=== PATIENT | female | born 1995 | race Two or more races ===

== ENCOUNTER 2021-04-01 10:45 | Outpatient (CLI) | payer OTHER, SELFPAY ==
[2021-04-01 10:49] LABS: Amphetamine Urine VISTA NEGATIVE (<1000 ng/mL); Barbiturate Urine VISTA NEGATIVE (< 200 ng/mL); Benzodiazepine Urine VISTA NEGATIVE (< 200 ng/mL); Cocaine Urine VISTA NEGATIVE (< 300 ng/mL); Ecstacy Urine VISTA NEGATIVE (< 500 ng/mL); Methadone Urine VISTA NEGATIVE (< 300 ng/mL); PCP Urine VISTA NEGATIVE (< 25 ng/mL); THC Urine VISTA NEGATIVE (< 50 ng/mL); Vista UDS pH Range 6
[2021-04-02 21:06] LABS: Chlamydia By Nucleic Acid AMP Negative (Negative)
[2021-04-03 15:33] LABS: Gonococcus By Nucleic Acid AMP Negative (Negative)
== END 2021-04-01 23:59 | disposition short-term general hospital (02) ==
LOC: LABSPEC 10:47
PROVIDERS: PCP Nurse Practitioner Primary Care; Visit Provider Obstetrics & Gynecology
DX: Z34.90 Encounter for supervision of normal pregnancy, unspecified, unspecified trimester (principal)
CPT/HCPCS: 80307; 87086; 87491; 87591

== ENCOUNTER 2021-04-09 00:12 | Outpatient (CLI) | payer OTHER, SELFPAY ==
[2021-04-09 07:22] LABS: Absolute Lymphocyte Count 2.51 X10^3/uL (0.83-4.51); Absolute Neutrophil Count 9.3 X10^3/uL (2.0-7.7); Basophil# 0.03 X10^3/uL; Basophil% 0.2 % (0-1); Eosinophil# 0.04 X10^3/uL; Eosinophils% 0.3 % (0-5); Hematocrit 36.9 % (37-47); Hemoglobin 12.6 g/dL (12.0-15.0); Lymphocyte # 2.51 X10^3/ul (0.83-4.51); Lymphocyte % 19.7 % (19-41); Mean Corp Hgb Conc 34.1 g/dL (32-36); Mean Corpuscular Hgb 28.7 pg (27.0-32.0); Mean Corpuscular Volume 84.1 fL (81-99); Mean Platelet Vol. 9.8 fl (6.2-12.0); Monocyte# 0.83 X10^3/uL; Monocyte% 6.5 % (0-10); NRBC Flagged by Analyzer 0 % (0-5); Neutrophil # 9.27 X10^3/uL (2.7-7.7); Neutrophil % 72.9 % (47-70); Platelet Count 317 K/mm3 (150-450); RBC Distribution Width CV 11.5 % (11.6-14.6); RBC Distribution Width SD 35.3 fl (35.1-43.9); Red Blood Count 4.39 M/mm3 (4.2-5.4); White Blood Count 12.7 K/mm3 (4.4-11.0)
[2021-04-09 09:17] LABS: HIV - WCH Non-Reactive (Nonreactive); Hepatitis B Surface Antigen Non-Reactive (Nonreactive); Hepatitis C Antibody Non-Reactive (Nonreactive); Rubella IgG Reactive (Nonreactive); Syphilis Antibodies Non-reactive
== END 2021-04-09 23:59 | disposition short-term general hospital (02) ==
PROVIDERS: PCP Nurse Practitioner Primary Care; Visit Provider Obstetrics & Gynecology
DX: Z34.90 Encounter for supervision of normal pregnancy, unspecified, unspecified trimester (principal)
CPT/HCPCS: 85025; 86703; 86762; 86780; 86803; 86850; 86900; 86901; 87340

== ENCOUNTER 2021-06-10 08:16 | Outpatient (CLI) | payer OTHER, SELFPAY ==
--- NOTE | 2021-06-10 08:18 | US_ITS ---
STUDY: SECOND AND THIRD TRIMESTER OBSTETRICAL ULTRASOUND REASON FOR EXAM: Female, 25 years old routine survey LMP: 01/28/2021 TECHNIQUE: Transabdominal TECHNICAL QUALITY: Adequate. PRIOR ULTRASOUND: None. FINDINGS: There is a single intrauterine fetus. The fetus is in a breech presentation. There is demonstrated cardiac activity with a heart rate of 143 bpm. There is a subjectively normal amniotic fluid volume. The largest amniotic fluid pocket measures 6.3 x 2.2 cm. The placenta is anterior in location and is not low lying. There are Grade 0 placental changes. The cervix measures 4.1 cm in length. The bilateral adnexal regions are normal. BIOMETRY: BPD: 4.14 cm: 18 weeks, 3 days HC: 15.08 cm: 18 weeks, 0 days AC: 13.83 cm: 19 weeks, 1 days FL: 2.92 cm: 18 weeks, 6 days age by current US: 18 weeks, 2 days. ENEIDA by current US: 11/09/2021. Estimated weight: 272 grams, +/- 41 grams, 49 %. Age by LMP: 19 weeks, 0 days. ENEIDA by LMP: 11/04/2021. ANATOMY: Gender: Indeterminant Cranium: Normal lateral ventricles. Normal choroid plexus. Normal cerebellum. Normal cisterna magna. Normal face, nose and lips. Chest: Normal 4-chamber heart. Abdomen/Pelvis: Normal diaphragm. Normal stomach. Normal abdominal wall. Normal cord insertion. Normal 3 vessel cord. Normal kidneys. Normal bladder. Spine: Spine could not be adequately visualized due to positioning and movement during the exam. Extremities: Normal bilateral upper extremities. Normal bilateral lower extremities. IMPRESSION: Single live intrauterine at 18 weeks, 2 days by current ultrasound with ENEIDA of 11/09/2021. Heart rate of 143 bpm. No suspicious sonographic findings. However, the spine could not be adequately visualized during the exam due to positioning and movement, recommend a short-term follow-up ultrasound to assure normal spine. Pending Final Proof Editing STUDY: FIRST TRIMESTER OBSTETRICAL ULTRASOUND REASON FOR EXAM: Female, 25 years old anatomy LMP: TECHNIQUE: TECHNICAL QUALITY: Adequate. PRIOR ULTRASOUND: None. FINDINGS: There is visualization of a single gestational sac in a normal intrauterine position. The mean sac diameter (MSD) measures , indicating an estimated gestational age (EGA) of weeks, days. The gestational sac shape is within normal limits. There is a visualized yolk sac. The yolk sac measures . The placenta is non-visualized. There is visualization of a live embryo. The crown-rump length (CRL) measures , indicating an estimated gestational age (EGA) of weeks, days. There is demonstrated cardiac activity with a heart rate of bpm. The estimated gestation age (EGA) by LMP is weeks, days. The estimated date of delivery (ENEIDA) by LMP is . The estimated gestation age (EGA) by US is weeks, days. The estimated date of delivery (ENEIDA) by US is . The uterus measures . There is no demonstrated uterine fibroid. The cervix is closed. The right ovary measures . There is no right ovarian cyst. There is no visualized right adnexal mass or complex lesion. The left ovary measures . There is no left ovarian cyst. There is no visualized left adnexal mass or complex lesion. There is no fluid in the cul de sac. US/OB Anatomy Scan IMPRESSION: Pending Final Proof Editing
== END 2021-06-10 23:59 | disposition home or self-care (01) ==
PROVIDERS: PCP Nurse Practitioner Primary Care; Referring Provider Obstetrics & Gynecology; Visit Provider Obstetrics & Gynecology
DX: Z34.90 Encounter for supervision of normal pregnancy, unspecified, unspecified trimester (principal)
CPT/HCPCS: 76805; 76817

== ENCOUNTER 2021-06-22 11:18 | Outpatient (CLI) | payer OTHER, SELFPAY ==
--- NOTE | 2021-06-22 11:22 | US_ITS ---
STUDY: SECOND AND THIRD TRIMESTER OBSTETRICAL ULTRASOUND - LIMITED REASON FOR EXAM: Female, 25 years old repeat views spine views LMP: 01/28/2021. PRIOR ULTRASOUND: Comparison is made with prior examination 06/11/2019. TECHNIQUE: Transabdominal TECHNICAL QUALITY: Adequate. FINDINGS: There is a single intrauterine fetus. The fetus is in a cephalic presentation. There is demonstrated cardiac activity with a heart rate of 153 bpm. There is a normal amniotic fluid volume. The largest amniotic fluid pocket measures 4.24 cm. The amniotic fluid index (JUDITH) is normal limits. The placenta is anterior in location and is not low lying. There are Grade 0 placental changes. The cervix measures 3.3 cm in length. BIOMETRY: Age by LMP: 20 weeks, 5 days. ENEIDA by LMP: 11/04/2021. Repeat views of the spine were obtained. No sonographic abnormality is seen. US/OB Limited (No Biometrics) IMPRESSION: Unremarkable appearance of the spine. Electronically Signed: Nathan Mckenzie MD at 15:42 EDT ,
== END 2021-06-22 23:59 | disposition home or self-care (01) ==
LOC: OPUS 11:21
PROVIDERS: PCP Nurse Practitioner Primary Care; Referring Provider Obstetrics & Gynecology; Visit Provider Obstetrics & Gynecology
DX: Z34.90 Encounter for supervision of normal pregnancy, unspecified, unspecified trimester (principal)
CPT/HCPCS: 76815

== ENCOUNTER → 2021-07-30 | Outpatient (CLI) | payer OTHER, SELFPAY ==
[2021-07-30 13:39] LABS: Absolute Lymphocyte Count 1.85 X10^3/uL (0.83-4.51); Absolute Neutrophil Count 9.5 X10^3/uL (2.0-7.7); Basophil# 0.03 X10^3/uL; Basophil% 0.2 % (0-1); Eosinophil# 0.05 X10^3/uL; Eosinophils% 0.4 % (0-5); Hematocrit 33.5 % (37-47); Hemoglobin 10.9 g/dL (12.0-15.0); Lymphocyte # 1.85 X10^3/ul (0.83-4.51); Lymphocyte % 14.6 % (19-41); Mean Corp Hgb Conc 32.5 g/dL (32-36); Mean Corpuscular Hgb 29.5 pg (27.0-32.0); Mean Corpuscular Volume 90.5 fL (81-99); Monocyte# 0.83 X10^3/uL; Monocyte% 6.6 % (0-10); NRBC Flagged by Analyzer 0 % (0-5); Neutrophil # 9.53 X10^3/uL (2.7-7.7); Neutrophil % 75.3 % (47-70); Platelet Count 255 K/mm3 (150-450); RBC Distribution Width CV 12.3 % (11.6-14.6); RBC Distribution Width SD 40.7 fl (35.1-43.9); White Blood Count 12.7 K/mm3 (4.4-11.0)
[2021-07-30 14:16] LABS: Glucose Challenge Gest 1H 50g 121 mg/dL (70-140)
== END | disposition home or self-care (01) ==
LOC: LAB 13:08
PROVIDERS: PCP Nurse Practitioner Primary Care; Referring Provider Obstetrics & Gynecology; Visit Provider Obstetrics & Gynecology
DX: Z34.90 Encounter for supervision of normal pregnancy, unspecified, unspecified trimester (principal)
CPT/HCPCS: 36415; 82950; 85025

== ENCOUNTER → 2021-10-07 | Outpatient (CLI) | payer OTHER, SELFPAY ==
[2021-10-07 14:20] LABS: Absolute Lymphocyte Count 1.64 X10^3/uL (0.83-4.51); Absolute Neutrophil Count 9.4 X10^3/uL (2.0-7.7); Basophil# 0.03 X10^3/uL; Basophil% 0.2 % (0-1); Eosinophil# 0.06 X10^3/uL; Eosinophils% 0.5 % (0-5); Hematocrit 36.7 % (37-47); Lymphocyte # 1.64 X10^3/ul (0.83-4.51); Lymphocyte % 13.3 % (19-41); Mean Corp Hgb Conc 32.7 g/dL (32-36); Mean Corpuscular Hgb 29.2 pg (27.0-32.0); Mean Corpuscular Volume 89.3 fL (81-99); Mean Platelet Vol. 9.4 fl (6.2-12.0); Monocyte# 0.98 X10^3/uL; Monocyte% 7.9 % (0-10); NRBC Flagged by Analyzer 0 % (0-5); Neutrophil # 9.38 X10^3/uL (2.7-7.7); Neutrophil % 75.8 % (47-70); Platelet Count 250 K/mm3 (150-450); RBC Distribution Width CV 12.4 % (11.6-14.6); RBC Distribution Width SD 40.3 fl (35.1-43.9); Red Blood Count 4.11 M/mm3 (4.2-5.4); White Blood Count 12.4 K/mm3 (4.4-11.0)
== END | disposition home or self-care (01) ==
LOC: LAB 13:00
PROVIDERS: PCP Nurse Practitioner Primary Care; Visit Provider Obstetrics & Gynecology
DX: D64.9 Anemia, unspecified (principal)
CPT/HCPCS: 85025

== ENCOUNTER 2021-10-11 13:40 | Outpatient (CLI) | payer OTHER, SELFPAY ==
[2021-10-11 13:47] VITALS: BP 110/67; PULSE 103
[2021-10-11 13:48] VITALS: PULSE 109; O2SAT 98; BMI 25.0
[2021-10-11 13:51] VITALS: TEMP 36.8; O2SAT 98
--- NOTE | 2021-10-11 17:59 | OB.TRI.HP_ITS ---
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 She denies loss of fluid, bright red bleeding, or dec movement. Maternal Data Information ENEIDA Calculator Estimated Delivery Date Method Current WG Current Estimate 11/04/21 LMP (Certain) 36w 5d PFSH [facility] Medical History Adenoma of breast Adopted Anxiety Mild anemia Home Medications multivitamin no.47-iron fum 27 mg-folate no.1 1 mg-dha 300 mg capsule (PNV-DHA) 1 cap PO DAILY 03/17/21 [History Last Taken 10/10/21 21:00] ferrous sulfate 325 mg (65 mg iron) tablet 325 mg PO DAILY supplement 08/11/21 [History Last Taken 10/11/21 07:00] docusate sodium 100 mg capsule (Colace) 100 mg PO DAILY PRN stool softner 09/08/21 [History Last Taken 10/11/21 07:00] Allergy/AdvReac Type Severity Reaction Status Date / Time No Known Allergies Allergy Verified 09/22/21 08:52 Social History adopted: Yes household members: spouse housing: house current occupational status: employed 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 pets and animals: No Smoking Status: Never smoker second hand exposure: No alcohol intake: never substance use type: does not use caffeine: Yes seatbelt use: always do you feel safe at home: Yes additional social history: - Syd History 2 Elective abortions Hx Para Spontaneous abortions 1 Hx # Term Pregnancies Ectopic pregnancies Hx # Pregnancies Multiple births # of living children Visit Details Expected Delivery Route/Plan Labor Preferences- CB/BF classes: encouraged labor support person: Syd labor intervention preferences: [] pain management options preferred: epidural if needed cut cord/dad catch: no : yes PP control planned: discussed possible routes of delivery and associated risks: [] special requests: [] Plans Covid status: counseled regarding risk of covid in vs vaccination and declined vaccination Flu vaccine: discussed Tdap vaccine: given Rhogam: na LARC form signed: yes movement and labor precautions reviewed. Problem list reviewed and updated with the most current plan of care details and appropriate orders placed. Relevant counseling for the gestational age provided. Continue routine care and follow up unless otherwise noted in visit notes/problem list details OB Flowsheet Initial Weight: 130 lb Date -?-?-?-?-?-?-?-?-?-?-?-?- EGA Weight BP Urine Prot -?-?-?-?-?-?-?-?-?-?-?-?- Glucose FHR FuHt Pres Dilation -?-?-?-?-?-?-?-?-?-?-?-?- Effaced St Visit Note 04/01/21 -?-?-?-?-?-?-?-?-?-?-?-?- 9w 0d 130 lb (+0 oz) 110/82 -?-?-?-?-?-?-?-?-?-?-?-?- 168 -?-?-?-?-?-?-?-?-?-?-?-?- JV-CRL is consis tent with LMP. No complaints 04/28/21 -?-?-?-?-?-?-?-?-?-?-?-?- 12w 6d 130 lb 6 oz (+6 oz) 110/80 Negative -?-?-?-?-?-?-?-?-?-?-?-?- Negative 180 -?-?-?-?-?-?-?-?-?-?-?-?- JV-nausea a alise le worse but no weight loss. anatomy scan ordered 05/29/21 -?-?-?-?-?-?-?-?-?-?-?-?- 17w 2d 139 lb 4 oz (+9 lb 4 oz) 122/70 Negative -?-?-?-?-?-?-?-?-?-?-?-?- Negative 145 -?-?-?-?-?-?-?-?-?-?-?-?- Sm- no vb crmapi ng co nausea 06/23/21 -?-?-?-?-?-?-?-?-?-?-?-?- 20w 6d 145 lb 6 oz (+15 lb 6 oz) 118/60 Trace -?-?-?-?-?-?-?-?-?-?-?-?- Negative 154 -?-?-?-?-?-?-?-?-?-?-?-?- -NO VB, LOF. N o movement yet, ant placenta. 07/20/21 -?-?-?-?-?-?-?-?-?-?-?-?- 24w 5d 151 lb 6 oz (+21 lb 6 oz) 102/80 Negative -?-?-?-?-?-?-?-?-?-?-?-?- Negative 145 -?-?-?-?-?-?-?-?-?-?-?-?- JV- no lof, vagi nal bleeding, or dec fm. gct ordered. 08/11/21 -?-?-?-?-?-?-?-?-?-?-?-?- 27w 6d 154 lb 8 oz (+24 lb 8 oz) 106/70 Trace -?-?-?-?-?-?-?-?-?-?-?-?- Negative 161 27 -?-?-?-?-?-?-?-?-?-?-?-?- -No VB, LOF. G ood FM. Normal 28 wk labs. tdtyree, mirna. 08/25/21 -?-?-?-?-?-?-?-?-?-?-?-?- 29w 6d 159 lb 2 oz (+29 lb 2 oz) 98/60 Negative -?-?-?-?-?-?-?-?-?-?-?-?- Negative 145 30 -?-?-?-?-?-?-?-?-?-?-?-?- JV- no lof ,vagi nal bleeding, or dec fm. No complaint today. sister in law is due this week in [place] 09/08/21 -?-?-?-?-?-?-?-?-?-?-?-?- 31w 6d 162 lb 6 oz (+32 lb 6 oz) 100/60 Negative -?-?-?-?-?-?-?-?-?-?-?-?- Negative 160 32 -?-?-?-?-?-?-?-?-?-?-?-?- SM- no vb lof go od fm no regular ctx 09/22/21 -?-?-?-?-?-?-?-?-?-?-?-?- 33w 6d 164 lb 4 oz (+34 lb 4 oz) 100/68 Negative -?-?-?-?-?-?--?-?-?-?-?-?- Negative 140 34 -?-?-?-?-?-?-?-?-?-?-?-?- SM- no vb lof go od fm no regular ctx 10/06/21 -?-?-?-?-?-?-?-?-?-?-?-?- 35w 6d 166 lb (+36 lb) 116/64 Negative -?-?-?-?-?-?-?-?-?-?-?-?- Negative 130 36 Cephalic -?-?-?-?-?-?-?-?-?-?-?-?- SM- no vb lof go od fm no regular ctx ROS Constitutional Constitutional: Reports systems reviewed and no addt'l complaints, except as documented Gastrointestinal Gastrointestinal: Denies bloating, constipation, cramping, diarrhea, nausea or vomiting Genitourinary Genitourinary: Reports other Details: Denies vaginal odor, vaginal bleeding, or vaginal discharge ; Denies difficulty urinating or flank pain Physical Exam HEENT normocephalic Resp normal respiratory effort and normal air movement no CVA tenderness Extremity normal to inspection General Extremity: edema bilateral (trace ) NST FHR Rate Baby A Baseline: 130 Variability:: Moderate Accelerations:: 15 x 15 Decelerations:: None NST Reactive:: Yes FHR Category:: Category I Assessment & Plan (1) Mild anemia: COMMENT: taking Fe. (2) Supervision of normal : QUALIFIERS: Normal : other normal Trimester: second trimester Qualified Code(s): Z34.82 - Encounter for supervision of other normal , second trimester COMMENT: PRR ENEIDA: 11/04/21 surprise Spouse: Syd (3) : QUALIFIERS: Weeks of gestation: 35 weeks Qualified Code(s): Z3A.35 - 35 weeks gestation of COMMENT: declines genetic ntd and carrier screening, nl anatomy. (4) Vaginal bleeding during , antepartum: PLAN: Plan plan to send patient home to rest and no work today. no signs of labor or abruption follow up next week in office. Charges/Coding Multi Select Codes Visit Charges Office Visit/Consults: 59089 OV L3 Est Urinary/Genital Urinary/Genital CPT Codes: 91890-91 non-stress test Interp
== END 2021-10-11 14:33 | disposition home or self-care (01) ==
LOC: WPOUT 13:44 → WP 13:45
PROVIDERS: PCP Nurse Practitioner Primary Care; Visit Provider Obstetrics & Gynecology
DX: O99.013 Anemia complicating pregnancy, third trimester (principal); Z3A.36 36 weeks gestation of pregnancy
CPT/HCPCS: 59025; 59050; 99218; G0378

== ENCOUNTER → 2021-10-14 | Outpatient (CLI) | payer OTHER, SELFPAY | END | disposition home or self-care (01) | LOC: LABSPEC 10-15 08:42 | PROVIDERS: PCP Nurse Practitioner Primary Care; Visit Provider Obstetrics & Gynecology | DX: Z34.90 Encounter for supervision of normal pregnancy, unspecified, unspecified trimester (principal) | CPT/HCPCS: 87081 ==

== ENCOUNTER 2021-10-19 12:30 | Inpatient (IN) | payer OTHER, SELFPAY ==
[2021-10-19] VITALS (54 sets, daily range): BP systolic 95–190; BP diastolic 54–77; PULSE 64–96; TEMP 36.1–36.8; O2SAT 90–100; BMI 25.1
[2021-10-19 12:27] LABS: ROM Internal Control Test YES-OK TO RESULT pt. (Internal QC)
[2021-10-19 12:29] LABS: ROM Patient Test POSITIVE (Negative)
[2021-10-19] MEDS: Lactated Ringers 1,000 ML 50 ML IV (13:15)
[2021-10-19] MEDS: Oxytocin 30 units/NS 500 ml 30 UNITS/500 ML IV.SOLN IV (13:26)
[2021-10-19 13:35] LABS: Absolute Lymphocyte Count 1.76 X10^3/uL (0.83-4.51); Absolute Neutrophil Count 6.7 X10^3/uL (2.0-7.7); Basophil# 0.01 X10^3/uL; Basophil% 0.1 % (0-1); Eosinophil# 0.02 X10^3/uL; Eosinophils% 0.2 % (0-5); Hematocrit 37.1 % (37-47); Hemoglobin 12.2 g/dL (12.0-15.0); Lymphocyte # 1.76 X10^3/ul (0.83-4.51); Lymphocyte % 18.9 % (19-41); Mean Corp Hgb Conc 32.9 g/dL (32-36); Mean Corpuscular Hgb 28.8 pg (27.0-32.0); Mean Corpuscular Volume 87.5 fL (81-99); Mean Platelet Vol. 9.7 fl (6.2-12.0); Monocyte# 0.68 X10^3/uL; Monocyte% 7.3 % (0-10); NRBC Flagged by Analyzer 0 % (0-5); Neutrophil # 6.65 X10^3/uL (2.7-7.7); Neutrophil % 71.5 % (47-70); Platelet Count 281 K/mm3 (150-450); RBC Distribution Width CV 12.3 % (11.6-14.6); RBC Distribution Width SD 39.2 fl (35.1-43.9); Red Blood Count 4.24 M/mm3 (4.2-5.4); White Blood Count 9.3 K/mm3 (4.4-11.0)
[2021-10-19] MEDS: LACTATED RINGERS 500 ML 999 ML IV ×2 (17:53→20:42)
[2021-10-19] MEDS: fentaNYL 100 MCG/2 ML Ampul IV (19:43)
[2021-10-19] MEDS: 0.9% Saline Lock 10 ML Syringe IV (19:43)
[2021-10-19] MEDS: fentaNYL-bupivacaine (epidural) 100 ML BAG EPIDURAL (20:10)
[2021-10-19] MEDS: Lactated Ringers 1,000 ML 200 ML IV (21:57)
[2021-10-19] MEDS: Ondansetron 4 MG/2 ML Vial IV (22:06)
[2021-10-19] MEDS: Oxytocin 30 units/NS 500 ml 30 UNITS/500 ML IV.SOLN 334 UNITS IV (22:41)
--- NOTE | 2021-10-19 22:57 | HP.PCM.OB_ITS ---
HPI - General General Date of Admission: 10/19/21 HPI Narrative MARJORIE GOMEZ, is a 26 F who presents IAL with SROM clear fluid since this morning, irregular ctx no vb good fm Maternal Data Information ENEIDA Calculator Estimated Delivery Date Method Current WG Current Estimate 11/04/21 LMP (Certain) 37w 5d PFSH [facility] Medical History (Updated 10/19/21 @ 22:[address] Suly Card MD) Adenoma of breast Adopted Anxiety Anxiety Mild anemia Home Medications multivitamin no.47-iron fum 27 mg-folate no.1 1 mg-dha 300 mg capsule (PNV-DHA) 1 cap PO DAILY 03/17/21 [History Last Taken 10/18/21 08:00] ferrous sulfate 325 mg (65 mg iron) tablet 325 mg PO DAILY supplement 08/11/21 [History Last Taken 10/16/21 08:00] docusate sodium 100 mg capsule (Colace) 100 mg PO DAILY PRN stool softner 09/08/21 [History Last Taken 10/16/21 08:00] Allergy/AdvReac Type Severity Reaction Status Date / Time No Known Allergies Allergy Verified 10/19/21 12:13 Social History adopted: Yes household members: spouse housing: house current occupational status: employed 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 pets and animals: No Smoking Status: Never smoker second hand exposure: No alcohol intake: never substance use type: does not use caffeine: Yes seatbelt use: always do you feel safe at home: Yes additional social history: - Syd History 2 Elective abortions Hx Para 0 Spontaneous abortions 1 Hx # Term Pregnancies Ectopic pregnancies Hx # Pregnancies Multiple births # of living children Visit Details Expected Delivery Route/Plan Labor Preferences- CB/BF classes: encouraged labor support person: Syd labor intervention preferences: [] pain management options preferred: epidural if needed cut cord/dad catch: no : yes PP control planned: discussed possible routes of delivery and associated risks: [] special requests: [] Plans Covid status: counseled regarding risk of covid in vs vaccination and declined vaccination Flu vaccine: discussed Tdap vaccine: given Rhogam: na LARC form signed: yes movement and labor precautions reviewed. Problem list reviewed and updated with the most current plan of care details and appropriate orders placed. Relevant counseling for the gestational age provided. Continue routine care and follow up unless otherwise noted in visit notes/problem list details OB Flowsheet Initial Weight: 130 lb Date -?-?-?-?-?-?-?-?-?-?-?-?- EGA Weight BP Urine Prot -?-?-?-?-?-?-?-?-?-?-?-?- Glucose FHR FuHt Pres Dilation -?-?-?-?-?-?-?-?-?-?-?-?- Effaced St Visit Note 04/01/21 -?-?-?-?-?-?-?-?-?-?-?-?- 9w 0d 130 lb (+0 oz) 110/82 -?-?-?-?-?-?-?-?-?-?-?-?- 168 -?-?-?-?-?-?-?-?-?-?-?-?- JV-CRL is consis tent with LMP. No complaints 04/28/21 -?-?-?-?-?-?-?-?-?-?-?-?- 12w 6d 130 lb 6 oz (+6 oz) 110/80 Negative -?-?-?-?-?-?-?-?-?-?-?-?- Negative 180 -?-?-?-?-?-?-?-?-?-?-?-?- JV-nausea a alise le worse but no weight loss. anatomy scan ordered 05/29/21 -?-?-?-?-?-?-?-?-?-?-?-?- 17w 2d 139 lb 4 oz (+9 lb 4 oz) 122/70 Negative -?-?-?-?-?-?-?-?-?-?-?-?- Negative 145 -?-?-?-?-?-?-?-?-?-?-?-?- Sm- no vb crmapi ng co nausea 06/23/21 -?-?-?-?-?-?-?-?-?-?-?-?- 20w 6d 145 lb 6 oz (+15 lb 6 oz) 118/60 Trace -?-?-?-?-?-?-?-?-?-?-?-?- Negative 154 -?-?-?-?-?-?-?-?-?-?-?-?- -NO VB, LOF. N o movement yet, ant placenta. 07/20/21 -?-?-?-?-?-?-?-?-?-?-?-?- 24w 5d 151 lb 6 oz (+21 lb 6 oz) 102/80 Negative -?-?-?-?-?-?-?-?-?-?-?-?- Negative 145 -?-?-?-?-?-?-?-?-?-?-?-?- JV- no lof, vagi nal bleeding, or dec fm. gct ordered. 08/11/21 -?-?-?-?-?-?-?-?-?-?-?-?- 27w 6d 154 lb 8 oz (+24 lb 8 oz) 106/70 Trace -?-?-?-?-?-?-?-?-?-?-?-?- Negative 161 27 -?-?-?-?-?-?-?-?-?-?-?-?- -No VB, LOF. G ood FM. Normal 28 wk labs. tdap, larc. 08/25/21 -?-?-?-?-?-?-?-?-?-?-?-?- 29w 6d 159 lb 2 oz (+29 lb 2 oz) 98/60 Negative -?-?-?-?-?-?-?-?-?-?-?--?- Negative 145 30 -?-?-?-?-?-?-?-?-?-?-?-?- JV- no lof ,vagi nal bleeding, or dec fm. No complaint today. sister in law is due this week in [place] 09/08/21 -?-?-?-?-?-?-?-?-?-?-?-?- 31w 6d 162 lb 6 oz (+32 lb 6 oz) 100/60 Negative -?-?-?-?-?-?-?-?-?-?-?-?- Negative 160 32 -?-?-?-?-?-?-?-?-?-?-?-?- SM- no vb lof go od fm no regular ctx 09/22/21 -?-?-?-?-?-?-?-?-?-?-?-?- 33w 6d 164 lb 4 oz (+34 lb 4 oz) 100/68 Negative -?-?-?-?-?-?-?-?-?-?-?-?- Negative 140 34 -?-?-?-?-?-?-?-?-?-?-?-?- SM- no vb lof go od fm no regular ctx 10/06/21 -?-?-?-?--?-?-?-?-?-?-?-?- 35w 6d 166 lb (+36 lb) 116/64 Negative -?-?-?-?-?-?-?-?-?-?-?-?- Negative 130 36 Cephalic -?-?-?-?-?-?-?-?-?-?-?-?- SM- no vb lof go od fm no regular ctx 10/14/21 -?-?-?-?-?-?-?-?-?-?-?-?- 37w 0d 165 lb (+35 lb) 92/70 Negative -?-?-?-?-?--?-?-?-?-?-?-?- Negative 125 36 Cephalic 2 -?-?-?-?-?-?-?-?-?-?-?-?- 80 -2 JV- pt con tinues to have tania conti and junie. labor precautions discussed and GBS collected. 10/19/21 -?-?-?-?-?-?-?-?-?-?-?-?- 37w 5d 165 lb 2.02 oz (+35 lb 2.02 oz) 112/67 110/76 104/76 106/69 104/69 106/65 190/77 123/63 115/69 100/63 106/59 103/57 102/59 109/58 105/55 98/56 95/54 99/64 104/55 -?-?-?-?-?-?-?-?-?-?-?-?- -?-?-?-?-?-?-?-?-?-?-?-?- NST FHR Rate Baby A Baseline: 140 Variability:: Moderate Accelerations:: 15 x 15 Decelerations:: None NST Reactive:: Yes FHR Category:: Category I Uterine Activity:: q3-5 ROS Constitutional Constitutional: Reports systems reviewed and no addt'l complaints, except as documented ENT HEENT: Reports systems reviewed and no addt'l complaints, except as documented Cardiovascular Cardiovascular: Reports systems reviewed and no addt'l complaints, except as documented Respiratory/Chest Respiratory/Chest: Reports systems reviewed and no addt'l complaints, except as documented Gastrointestinal Gastrointestinal: Reports systems reviewed and no addt'l complaints, except as documented and nausea; Denies abdominal pain Genitourinary Genitourinary: Reports systems reviewed and no addt'l complaints, except as documented, contractions Details: present and frequency (regular ) and movement Details: present Musculoskeletal Musculoskeletal: Reports systems reviewed and no addt'l complaints, except as documented Integumentary Integumentary: Reports as per HPI Neurologic Neurologic: Reports systems reviewed and no addt'l complaints, except as documented Endocrine Endocrinology: Reports systems reviewed and no addt'l complaints, except as documented Vital Signs Vital Signs Vital Signs: 10/19/21 12:06 10/19/21 12:06 10/19/21 12:06 Temperature Temperature Source Pulse Rate 77 Blood Pressure 112/67 BP Systolic 112 BP Diastolic 67 Pulse Ox 97 10/19/21 12:06 10/19/21 12:06 10/19/21 13:23 Temperature 97.0 F L Temperature Source Temporal Pulse Rate Blood Pressure 110/76 BP Systolic 110 BP Diastolic 76 Pulse Ox 10/19/21 13:23 10/19/21 13:28 10/19/21 13:28 Temperature Temperature Source Pulse Rate 76 66 Blood Pressure 104/76 BP Systolic 104 BP Diastolic 76 Pulse Ox 10/19/21 14:53 10/19/21 14:53 10/19/21 14:53 Temperature Temperature Source Temporal Pulse Rate 67 Blood Pressure 106/69 BP Systolic 106 BP Diastolic 69 Pulse Ox 10/19/21 14:53 10/19/21 14:53 10/19/21 14:53 Temperature 97.8 F Temperature Source Pulse Rate 66 Blood Pressure BP Systolic BP Diastolic Pulse Ox 98 10/19/21 15:54 10/19/21 15:54 10/19/21 15:54 Temperature Temperature Source Pulse Rate 66 Blood Pressure 104/69 BP Systolic 104 BP Diastolic 69 Pulse Ox 100 10/19/21 15:54 10/19/21 15:54 10/19/21 16:50 Temperature 98.0 F Temperature Source Temporal Pulse Rate Blood Pressure 106/65 BP Systolic 106 BP Diastolic 65 Pulse Ox 10/19/21 16:50 10/19/21 16:50 10/19/21 16:50 Temperature 97.4 F L Temperature Source Temporal Pulse Rate 68 Blood Pressure BP Systolic BP Diastolic Pulse Ox 10/19/21 19:50 10/19/21 19:50 10/19/21 19:50 Temperature Temperature Source Pulse Rate 70 Blood Pressure 190/77 H BP Systolic 190 BP Diastolic 77 Pulse Ox 100 10/19/21 19:55 10/19/21 19:55 10/19/21 19:56 Temperature Temperature Source Pulse Rate 72 Blood Pressure 123/63 H BP Systolic 123 BP Diastolic 63 Pulse Ox 100 10/19/21 19:56 10/19/21 20:00 10/19/21 20:00 Temperature Temperature Source Pulse Rate 81 77 Blood Pressure BP Systolic BP Diastolic Pulse Ox 100 10/19/21 20:01 10/19/21 20:01 10/19/21 20:05 Temperature Temperature Source Pulse Rate 70 71 Blood Pressure 115/69 BP Systolic 115 BP Diastolic 69 Pulse Ox 10/19/21 20:05 10/19/21 20:07 10/19/21 20:07 Temperature Temperature Source Pulse Rate 74 Blood Pressure 100/63 BP Systolic 100 BP Diastolic 63 Pulse Ox 100 10/19/21 20:07 10/19/21 20:12 10/19/21 20:12 Temperature Temperature Source Pulse Rate 78 Blood Pressure BP Systolic BP Diastolic Pulse Ox 91 97 10/19/21 20:16 10/19/21 20:16 10/19/21 20:17 Temperature Temperature Source Pulse Rate 77 74 Blood Pressure 106/59 L BP Systolic 106 BP Diastolic 59 Pulse Ox 10/19/21 20:17 07/25/22 20:21 10/19/21 20:21 Temperature Temperature Source Pulse Rate 74 Blood Pressure 103/57 L BP Systolic 103 BP Diastolic 57 Pulse Ox 98 10/19/21 20:22 10/19/21 20:22 10/19/21 20:26 Temperature Temperature Source Pulse Rate 82 Blood Pressure 102/59 L BP Systolic 102 BP Diastolic 59 Pulse Ox 98 10/19/21 20:26 10/19/21 20:27 10/19/21 20:27 Temperature Temperature Source Pulse Rate 78 79 Blood Pressure BP Systolic BP Diastolic Pulse Ox 100 10/19/21 20:32 10/19/21 20:32 10/19/21 20:32 Temperature Temperature Source Pulse Rate 78 Blood Pressure 109/58 L BP Systolic 109 BP Diastolic 58 Pulse Ox 100 10/19/21 20:37 10/19/21 20:37 10/19/21 20:37 Temperature Temperature Source Pulse Rate 78 78 Blood Pressure 105/55 L BP Systolic 105 BP Diastolic 55 Pulse Ox 10/19/21 20:37 10/19/21 20:42 10/19/21 20:42 Temperature Temperature Source Pulse Rate 75 Blood Pressure 98/56 L BP Systolic 98 BP Diastolic 56 Pulse Ox 100 10/19/21 20:42 10/19/21 20:47 10/19/21 20:47 Temperature Temperature Source Pulse Rate 96 Blood Pressure BP Systolic BP Diastolic Pulse Ox 100 100 10/19/21 20:52 10/19/21 20:52 10/19/21 20:57 Temperature Temperature Source Pulse Rate 73 95 Blood Pressure BP Systolic BP Diastolic Pulse Ox 97 10/19/21 20:57 10/19/21 21:02 10/19/21 21:02 Temperature Temperature Source Pulse Rate 79 Blood Pressure BP Systolic BP Diastolic Pulse Ox 100 100 10/19/21 21:07 10/19/21 21:07 10/19/21 21:12 Temperature Temperature Source Pulse Rate 75 67 Blood Pressure BP Systolic BP Diastolic Pulse Ox 100 10/19/21 21:12 10/19/21 21:15 10/19/21 21:15 Temperature Temperature Source Pulse Rate 68 Blood Pressure 95/54 L BP Systolic 95 BP Diastolic 54 Pulse Ox 99 10/19/21 21:15 10/19/21 21:17 10/19/21 21:17 Temperature Temperature Source Pulse Rate 70 Blood Pressure BP Systolic BP Diastolic Pulse Ox 90 99 10/19/21 21:22 10/19/21 21:22 10/19/21 19:50 Temperature Temperature Source Temporal Pulse Rate 71 Blood Pressure BP Systolic BP Diastolic Pulse Ox 99 10/19/21 19:50 10/19/21 21:27 10/19/21 21:27 Temperature 97.0 F L Temperature Source Pulse Rate 70 Blood Pressure BP Systolic BP Diastolic Pulse Ox 99 10/19/21 21:15 10/19/21 21:15 10/19/21 21:32 Temperature 97.0 F L Temperature Source Temporal Pulse Rate 64 Blood Pressure BP Systolic BP Diastolic Pulse Ox 10/19/21 21:32 10/19/21 21:37 10/19/21 21:37 Temperature Temperature Source Pulse Rate 76 Blood Pressure BP Systolic BP Diastolic Pulse Ox 99 100 10/19/21 21:43 10/19/21 21:43 10/19/21 21:45 Temperature Temperature Source Pulse Rate 80 Blood Pressure 99/64 BP Systolic 99 BP Diastolic 64 Pulse Ox 90 10/19/21 21:45 10/19/21 21:47 10/19/21 21:47 Temperature Temperature Source Pulse Rate 71 85 Blood Pressure BP Systolic BP Diastolic Pulse Ox 99 10/19/21 21:52 10/19/21 21:52 10/19/21 21:57 Temperature Temperature Source Pulse Rate 76 87 Blood Pressure BP Systolic BP Diastolic Pulse Ox 92 10/19/21 21:57 10/19/21 21:45 10/19/21 21:45 Temperature 97.2 F L Temperature Source Temporal Pulse Rate Blood Pressure BP Systolic BP Diastolic Pulse Ox 100 10/19/21 22:51 10/19/21 22:51 10/19/21 22:51 Temperature Temperature Source Pulse Rate 76 Blood Pressure 104/55 L BP Systolic 104 BP Diastolic 55 Pulse Ox 100 Weight Weight: 165 lb 2.02 oz Body Mass Index (BMI) 25.1 Physical Exam Const alert, oriented x3 and healthy appearing Constitutional Narrative: uncomfortable with contractions HEENT normocephalic and moist oral mucous membranes Head and Scalp: atraumatic Neck full ROM, no lymphadenopathy, supple and thyroid normal General: trachea midline Thyroid: thyroid normal Lymph Lymphatic: no lymphadenopathy noted Chest inspection of chest normal Resp normal respiratory effort Cardio regular rate GI normal to inspection, nondistended, normoactive bowel sounds, soft to palpation and non-tender Inspection: gravid external exam normal Bimanual Exam - Vag & Uterus: uterus non-tender Manual OB Exam: estimated gestational size appropriate, presentation cephalic, dilated, effaced and station Extremity normal to inspection General Extremity: Negative for edema Skin no rashes or lesions noted Neuro deep tendon reflexes 2+ bilaterally Motor Exam: strength 5/5 throughout and clonus absent Psych mental status grossly normal Labs Labs Labs: Blood Type A POSITIVE Antibody Screen NEGATIVE Hct 37.1 % (37-47) Hgb 12.2 g/dL (12.0-15.0) Pap Smear Negative Obstetrics US Syphilis Total Ab Non-reactive Rubella IgG Antibody Reactive (Nonreactive) Hep Bs Antigen Non-Reactive (Nonreactive) Chlamydia DNA (CHETNA) Negative (Negative) Neisseria gonorrhoeae DNA (CHETNA) Negative (Negative) HIV 1&2 Antibody Non-Reactive (Nonreactive) Glucose 1 Hr 50 gm 121 mg/dL (70-140) Assessment & Plan (1) Mild anemia: COMMENT: taking Fe. (2) Supervision of normal : QUALIFIERS: Normal : other normal Trimester: second trimester Qualified Code(s): Z34.82 - Encounter for supervision of other normal , second trimester COMMENT: PRR ENEIDA: 11/04/21 surprise Spouse: Syd (3) : QUALIFIERS: Weeks of gestation: 37 weeks Qualified Code(s): Z3A.37 - 37 weeks gestation of COMMENT: declines genetic ntd and carrier screening, nl anatomy. (4) SROM (spontaneous rupture of membranes): COMMENT: pit augmentation PRN PLAN: Plan Patient presents IAL, plan expectant management for , pitocin PRN if needed. Pain management: plans epidural. GBS neg. Management of any complications: none I have reviewed the [facility] and made any clinically relevant updates.
--- NOTE | 2021-10-19 22:59 | EX.PCM.OBRPT ---
Assessment & Plan (1) SROM (spontaneous rupture of membranes): COMMENT: pit augmentation PRN (2) : QUALIFIERS: Weeks of gestation: 37 weeks Qualified Code(s): Z3A.37 - 37 weeks gestation of COMMENT: declines genetic ntd and carrier screening, nl anatomy. (3) Supervision of normal : QUALIFIERS: Normal : other normal Trimester: second trimester Qualified Code(s): Z34.82 - Encounter for supervision of other normal , second trimester COMMENT: PRR ENEIDA: 11/04/21 surprise Spouse: Syd (4) Mild anemia: COMMENT: taking Fe. (5) (spontaneous vaginal delivery): COMMENT: IAL SROM 38 SM girl Jewell Maternal Data Information ENEIDA Calculator Estimated Delivery Date Method Current WG Current Estimate 11/04/21 LMP (Certain) 37w 5d Vaginal Delivery Operative Information Date of Procedure: 10/19/21 Pre-Operative Diagnosis: IAL Post-Operative Diagnosis: same Surgery / Procedure Performed: Spontaneous Vaginal Delivery Type of Anesthesia: Epidural Special Medications: none Estimated Blood Loss: 300 Fluids Replaced: crystalloid Findings Description of Procedure: Patient began pushing and delivered the head in the LEONOR presentation. The head was delivered atraumatically. The anterior and posterior shoulders delivered without complication followed by the rest of the and the was placed on the maternal abdomen. Delayed cord clamping was employed for approximately 60 seconds. Cord was clamped and cut and gentle traction was applied to the cord and the placenta delivered spontaneously immediately following it was noted to be intact with three-vessel cord. The perineum and vagina were inspected and noted to have a 1st degree perineal and right vaginal laceration repaired in the usual fashion with 3-0 rapide. EBL was 300. Patient and tolerated delivery well. Presentation: LEONOR Amniotic Membrane Rupture Type: Spontaneous Amniotic Fluid Description: Clear Placental Delivery Description: Spontaneous Placenta Disposition: [facility] Cord Vessel Description: 3 Vessels Cord Entanglement: None Delayed Cord Clamping: Yes Post Vaginal Delivery Medications Given After Delivery: IV Pitocin Episiotomy Description: None Laceration: Perineal Extension/lac and 1st degree Complication Complications: None Procedures Urinary/Genital [id number]: [id number] Vaginal Delivery [facility]
--- NOTE | 2021-10-19 23:03 | DCINST_ITS ---
Discharge Instructions Diet Discharge Diet: No restrictions Activity Discharge Activity: Return to Normal Activity, May Drive, May Shower and May Take a Tub Bath (in 4 weeks) May resume sexual activity in: 6-8 weeks (after seen by OB provider) Weight Bearing Status: Full weight bearing Lifting Restrictions: none Dressing / Incision Call your doctor if you observe: Fever of 101 or Higher, Inability to urinate, Using more than 1 pad per hour (for more than 2 hours in a row or more), Shortness of breath, Dizziness, Chest pain and - (headache not controlled with tylenol, change in vision) Follow Up Care When: in 6 weeks for visit, call the office to make the appointment. If you had elevated blood pressures call the office to be seen within 1 week. Test Results: Test results from this visit will be discussed in further detail at your follow- up appointment, if applicable. Discharge Plan Admission Admit Date/Time: 10/19/21 12:30 Primary Reason for Your Visit: vaginal delivery Attending Provider: Suly Card Primary Care Provider: Krystin Amin NP Discharge Orders/Prescriptions Prescriptions: No Action PNV-DHA 27 mg iron-1 mg -300 mg capsule 1 cap PO DAILY ferrous sulfate 325 mg (65 mg iron) tablet 325 mg PO DAILY docusate sodium [Colace] 100 mg capsule 100 mg PO DAILY PRN (Reason: stool softner) Referrals / Follow Up: Krystin Amin NP, [employer] [Primary Care Provider] - Disposition Disposition (needs filled in before D/C Order can be placed): Home, Self Care
[2021-10-20] VITALS (20 sets, daily range): BP systolic 97–109; BP diastolic 56–66; PULSE 59–88; RESP 16; TEMP 36.1–36.3; O2SAT 99–100
[2021-10-20] MEDS: 0.9% Saline Lock 10 ML Syringe IV (01:28)
--- NOTE | 2021-10-20 01:35 | NURSING ---
Care assumed from JOHN Workman . JOHN Jack
--- NOTE | 2021-10-20 07:43 | PN.OBGYN_ITS ---
Subjective Subjective Patient doing well without complaints. Tolerating PO. Ambulating and voiding without difficulty. Feeding well. Denies chest pain, shortness of breath, calf pain/swelling, fevers, chills, lightheadedness. Objective Data Objective Data Vital Signs: Vital Signs Temp Pulse Resp BP Pulse Ox O2 Del Method 97.1 F L 59 L 16 99/66 99 Room Air 10/20/21 07:36 10/20/21 07:36 10/20/21 07:36 10/20/21 07:36 10/20/21 00:58 10/20/21 07:36 Oxygen Delivery Method Room Air Weight: 165 lb 2.02 oz Body Mass Index (BMI) 25.1 Intake & Output: Intake and Output for Last 24 Hours 10/18/21 10/19/21 10/20/21 23:59 23:59 23:59 Intake Total 2998.33 / 2998.33 333 / 333 Output Total 600 / 600 1200 / 1200 Balance 2398.33 / 2398.33 -867 / -867 Lab / Micro Data Result Diagrams: 10/19/21 13:15 Labs: Laboratory Results - last 24 hr 10/19/21 12:18: Vag Amniotic Fld Detect POSITIVE H 10/19/21 13:15: WBC 9.3, RBC 4.24, Hgb 12.2, Hct 37.1, MCV 87.5, MCH 28.8, MCHC 32.9, RDW Std Deviation 39.2, RDW Coeff of Arturo 12.3, Plt Count 281, MPV 9.7, Immature Gran % (Auto) 2.000 H, Neut % (Auto) 71.5 H, Lymph % (Auto) 18.9 L, [place] % (Auto) 7.3, Eos % (Auto) 0.2, Baso % (Auto) 0.1, Absolute Neuts (auto) 6.7, Absolute Lymphs (auto) 1.76, Nucleated RBC % 0 10/19/21 13:15: Blood Type A POSITIVE, Antibody Screen NEGATIVE Micro: Microbiology 10/19/21 13:15 Nasal Secretion SARS-CoV-2 Antigen (Rapid) - Final Physical Exam Const alert and oriented x3 HEENT normocephalic Eyes PERRL Neck full ROM Resp normal respiratory effort GI soft to palpation GI Narrative: FF below U Assessment & Plan (1) (spontaneous vaginal delivery): COMMENT: KATE SRMERARI 38 SM girl Jewell PLAN: Plan s/p PPD # 1 1. routine post delivery care 2. breast feeding- support given 3. rh positive 4. rubella immune
--- NOTE | 2021-10-20 23:26 | NURSING ---
report given to Hollie RN she assumes pt care at this time
[2021-10-21 01:00] VITALS: BP 103/55; PULSE 71; RESP 16; TEMP 36; O2SAT 97
--- NOTE | 2021-10-21 07:47 | PCM.PN.OB ---
Subjective Subjective Patient doing well without complaints. Tolerating PO. Ambulating and voiding without difficulty. Feeding well. Denies chest pain, shortness of breath, calf pain/swelling, fevers, chills, lightheadedness. Objective Data Objective Data Vital Signs: Vital Signs Temp Pulse Resp BP Pulse Ox O2 Del Method 96.8 F L 71 16 103/55 L 97 Room Air 10/21/21 01:00 10/21/21 01:00 10/21/21 01:00 10/21/21 01:00 10/21/21 01:00 10/21/21 01:00 Oxygen Delivery Method Room Air Weight: 165 lb 2.02 oz Body Mass Index (BMI) 25.1 Intake & Output: Intake and Output for Last 24 Hours 10/19/21 10/20/21 10/21/21 23:59 23:59 23:59 Intake Total 2998.33 / 2998.33 333 / 333 Output Total 600 / 600 1200 / 1200 Balance 2398.33 / 2398.33 -867 / -867 Lab / Micro Data Result Diagrams: 10/19/21 13:15 Micro: Microbiology 10/19/21 13:15 Nasal Secretion SARS-CoV-2 Antigen (Rapid) - Final Physical Exam Const alert and oriented x3 HEENT normocephalic Eyes PERRL Neck full ROM Resp normal respiratory effort GI soft to palpation GI Narrative: FF below U Assessment & Plan (1) (spontaneous vaginal delivery): COMMENT: IAL SROM 38 SM girl [place]ell PLAN: Plan s/p PPD # 2 1. routine post delivery care 2. breast feeding- support given 3. rh positive 4. rubella immune 5. home today
[2021-10-21 09:13] VITALS: BP 100/64; PULSE 68; RESP 16; TEMP 36.8; O2SAT 98
== END 2021-10-21 11:30 | disposition home or self-care (01) | DRG 807 ==
LOC: WPOUT 12:46 → WP 12:46
PROVIDERS: Admitting Provider Obstetrics & Gynecology; PCP Nurse Practitioner Primary Care; Referring Provider Obstetrics & Gynecology; Visit Provider Obstetrics & Gynecology
DX: O42.92 Full-term premature rupture of membranes, unspecified as to length of time between rupture and onset of labor (principal); Z37.0 Single live birth; O70.0 First degree perineal laceration during delivery; O99.02 Anemia complicating childbirth; Z3A.37 37 weeks gestation of pregnancy; Z28.310 Unvaccinated for COVID-19; Z28.21 Immunization not carried out because of patient refusal
CPT/HCPCS: 59025; 59050; 84112; 85025; 86850; 86900; 86901; 87426; 99218; J7120; A4216; G0378; J2405

== ENCOUNTER → 2021-12-31 | Outpatient (CLI) | payer OTHER, SELFPAY | END | disposition home or self-care (01) | LOC: LABSPEC 14:28 | PROVIDERS: PCP Nurse Practitioner Primary Care; Visit Provider Physician Assistant | DX: N61.1 Abscess of the breast and nipple (principal) | CPT/HCPCS: 87070; 87075; 87077; 87186; 87205 ==

== ENCOUNTER → 2022-08-24 | Outpatient (CLI) | payer OTHER, SELFPAY ==
[2022-08-24 12:31] LABS: hCG Titer Quant., Serum 3 mIU/mL (1-3)
== END | disposition home or self-care (01) ==
LOC: LAB 11:45
PROVIDERS: PCP Nurse Practitioner Primary Care; Visit Provider Obstetrics & Gynecology
DX: N91.2 Amenorrhea, unspecified (principal)
CPT/HCPCS: 36415; 84702

== ENCOUNTER → 2022-09-15 | Outpatient (CLI) | payer OTHER, SELFPAY | END | disposition home or self-care (01) | LOC: LAB 16:44 | PROVIDERS: PCP Nurse Practitioner Primary Care; Visit Provider Obstetrics & Gynecology | DX: N96 Recurrent pregnancy loss (principal) | CPT/HCPCS: 81241; 86146; 86147 ==

== ENCOUNTER → 2022-10-01 | Outpatient (CLI) | payer OTHER, SELFPAY ==
[2022-10-01 10:57] LABS: hCG Titer Quant., Serum 5326 mIU/mL (1-3)
== END | disposition home or self-care (01) ==
LOC: LAB 09:33
PROVIDERS: PCP Nurse Practitioner Primary Care; Referring Provider Obstetrics & Gynecology; Visit Provider Obstetrics & Gynecology
DX: N91.2 Amenorrhea, unspecified (principal)
CPT/HCPCS: 36415; 84702

== ENCOUNTER → 2022-10-03 | Outpatient (CLI) | payer OTHER, SELFPAY ==
[2022-10-03 08:45] LABS: hCG Titer Quant., Serum 9593 mIU/mL (1-3)
== END | disposition home or self-care (01) ==
LOC: LAB 07:49
PROVIDERS: PCP Nurse Practitioner Primary Care; Visit Provider Obstetrics & Gynecology
DX: N91.2 Amenorrhea, unspecified (principal)
CPT/HCPCS: 84702

== ENCOUNTER → 2022-10-07 | Outpatient (CLI) | payer OTHER, SELFPAY ==
--- NOTE | 2022-10-07 16:21 | US_ITS ---
INDICATION: Positive , miscarriage in June 2022, no period afterwards, unknown LMP for dating. EXAMINATION: US OB Transvaginal TECHNIQUE: Transvaginal (for optimal evaluation of the adnexa) pelvic ultrasound was performed. Grayscale, spectral waveform, and color flow Doppler evaluation of the adnexa. COMPARISON: Pelvic ultrasound from 06/14/2021 FINDINGS: Uterus measures 9.2 x 5.7 x 7.1 cm. Single intrauterine gestational sac contains small pole and yolk sac, with heart rate of 112 bpm. [place]-rump length measurement of 3.4 mm yields estimated gestational age of 6 weeks 1 day, ENEIDA 06/01/2023. Gestational sac shape and amniotic fluid subjectively within normal limits. Closed cervix. Small amount of free pelvic fluid demonstrated. No adnexal mass identified. Bilateral ovaries demonstrate normal color Doppler flow (spectral waveform analysis was not performed). Right ovary measures 3.2 x 2 x 3 cm and left ovary 2.2 x 1.2 x 1.7 cm. No large ovarian cyst demonstrated. US/Transvaginal w/Preg US IMPRESSION: Single live intrauterine with EGA of 6 weeks 1 day by ultrasound. Small amount of free pelvic fluid. Electronically Signed: James Abernathy MD at 3:59 EDT ,
== END | disposition home or self-care (01) ==
LOC: OPUS 16:20
PROVIDERS: PCP Nurse Practitioner Primary Care; Referring Provider Obstetrics & Gynecology; Visit Provider Obstetrics & Gynecology
DX: N91.2 Amenorrhea, unspecified (principal)
CPT/HCPCS: 76817

== ENCOUNTER → 2022-10-29 | Outpatient (CLI) | payer OTHER, SELFPAY ==
[2022-11-01 05:06] LABS: Chlamydia By Nucleic Acid AMP Negative (Negative); Gonococcus By Nucleic Acid AMP Negative (Negative)
== END | disposition home or self-care (01) ==
LOC: LABSPEC 12:06
PROVIDERS: PCP Nurse Practitioner Primary Care; Referring Provider Registered Nurse; Visit Provider Registered Nurse
DX: Z34.90 Encounter for supervision of normal pregnancy, unspecified, unspecified trimester (principal); Z3A.00 Weeks of gestation of pregnancy not specified
CPT/HCPCS: 87086; 87491; 87591

== ENCOUNTER → 2022-11-21 | Outpatient (CLI) | payer OTHER, SELFPAY ==
[2022-11-21 19:36] LABS: Absolute Neutrophil Count 6.6 X10^3/uL (2.0-7.7); Basophil# 0.01 X10^3/uL; Basophil% 0.1 % (0-1); Eosinophil# 0.03 X10^3/uL; Eosinophils% 0.3 % (0-5); Hematocrit 36.2 % (37-47); Hemoglobin 11.9 g/dL (12.0-15.0); Lymphocyte % 22.3 % (19-41); Mean Corp Hgb Conc 32.9 g/dL (32-36); Mean Corpuscular Hgb 28.6 pg (27.0-32.0); Monocyte% 6.4 % (0-10); NRBC Flagged by Analyzer 0 % (0-5); Neutrophil # 6.58 X10^3/uL (2.7-7.7); Neutrophil % 69.8 % (47-70); Platelet Count 376 K/mm3 (150-450); RBC Distribution Width CV 11.8 % (11.6-14.6); RBC Distribution Width SD 37.7 fl (35.1-43.9); Red Blood Count 4.16 M/mm3 (4.2-5.4); White Blood Count 9.4 K/mm3 (4.4-11.0)
[2022-11-22 09:30] LABS: HIV - WCH Non-Reactive (Nonreactive); Hepatitis B Surface Antigen Non-Reactive (Nonreactive); Hepatitis C Antibody Non-Reactive (Nonreactive); Rubella IgG Reactive (Nonreactive); Syphilis Antibodies Non-reactive
== END | disposition home or self-care (01) ==
LOC: LAB 17:48
PROVIDERS: Registered Nurse; PCP Nurse Practitioner Primary Care; Visit Provider Obstetrics & Gynecology
DX: Z34.90 Encounter for supervision of normal pregnancy, unspecified, unspecified trimester (principal)
CPT/HCPCS: 85025; 86703; 86762; 86780; 86803; 86850; 86900; 86901; 87340

== ENCOUNTER → 2023-01-13 | Outpatient (CLI) | payer OTHER, SELFPAY ==
--- NOTE | 2023-01-13 07:56 | US_ITS ---
STUDY: SECOND AND THIRD TRIMESTER OBSTETRICAL ULTRASOUND REASON FOR EXAM: Female, 27 years old anatomy LMP: August 25, 2022. TECHNIQUE: Transabdominal and Transvaginal TECHNICAL QUALITY: Adequate. PRIOR ULTRASOUND: Comparison is made with prior study dated October 07, 2022. FINDINGS: There is a single intrauterine fetus. The fetus is in a breech presentation. There is demonstrated cardiac activity with a heart rate of 153 bpm. There is a normal amniotic fluid volume. The largest amniotic fluid pocket measures 4.6 cm x 7.1 cm. The amniotic fluid index (JUDITH) is within normal limits. The placenta is anterior in location and is not low lying. There are Grade 0 placental changes. The cervix measures 4.9 cm in length. The bilateral adnexal regions are normal. BIOMETRY: BPD: 5 cm: 21 weeks, 0 days HC: 18.1 cm: 20 weeks, 4 days AC: 15.5 cm: 20 weeks, 5 days FL: 5.5 cm: 21 weeks, 1 days CI: 79% FL/BPD: 71% FL/HC: FL/AC: 23% HC/AC: 1.17 age by current US: 20 weeks, 5 days. ENEIDA by current US: May 28, 2023. Estimated weight: 384 grams, +/- 58 grams, 83 %. age by prior US: 20 weeks, 4 days. ENEIDA by prior US: May 29, 2023. Age by LMP: 20 weeks, 1 days. ENEIDA by LMP: June 01, 2023. ANATOMY: Gender: Male Cranium: Normal lateral ventricles. Normal choroid plexus. Normal cerebellum. Normal cisterna magna. Normal face, nose and lips. Chest: Normal 4-chamber heart. Abdomen/Pelvis: Normal diaphragm. Normal stomach. Normal abdominal wall. Normal cord insertion. Normal 3 vessel cord. Normal kidneys. Normal bladder. Spine: Normal cervical spine. Normal thoracic spine. Normal lumbar spine. Normal sacrum. Extremities: Normal bilateral upper extremities. Normal bilateral lower extremities. IMPRESSION: Single live intrauterine gestation with a mean gestational age of 20 weeks and 4 days. The measurements obtained today fall within the normal expected range. Electronically Signed: Nathan Mckenzie MD at 12:07 EDT , STUDY: FIRST TRIMESTER OBSTETRICAL ULTRASOUND REASON FOR EXAM: Female, 27 years old . Cervical length. LMP: August 25, 2022 TECHNIQUE: Transvaginal TECHNICAL QUALITY: Adequate. PRIOR ULTRASOUND: None. FINDINGS: Cervical length measures 4.9 cm. US/OB Anatomy Scan IMPRESSION: Cervical length measures 4.9 cm. Electronically Signed: Nathan Mckenzie MD at 12:07 EDT ,
== END | disposition home or self-care (01) ==
PROVIDERS: PCP Nurse Practitioner Primary Care; Referring Provider Obstetrics & Gynecology; Visit Provider Obstetrics & Gynecology
DX: O09.90 Supervision of high risk pregnancy, unspecified, unspecified trimester (principal); Z3A.00 Weeks of gestation of pregnancy not specified
CPT/HCPCS: 76805; 76817

== ENCOUNTER → 2023-03-06 | Outpatient (CLI) | payer OTHER, SELFPAY ==
[2023-03-06 12:54] LABS: Glucose Challenge Gest 1H 50g 100 mg/dL (70-140)
== END | disposition home or self-care (01) ==
LOC: LAB 11:58
PROVIDERS: PCP Nurse Practitioner Primary Care; Visit Provider Obstetrics & Gynecology
DX: O09.90 Supervision of high risk pregnancy, unspecified, unspecified trimester (principal); Z3A.00 Weeks of gestation of pregnancy not specified
CPT/HCPCS: 82950

== ENCOUNTER → 2023-03-14 | Outpatient (CLI) | payer OTHER, SELFPAY | END | disposition home or self-care (01) | PROVIDERS: PCP Nurse Practitioner Primary Care; Visit Provider Obstetrics & Gynecology | DX: Z00.00 Encounter for general adult medical examination without abnormal findings (principal) ==

== ENCOUNTER → 2023-03-31 | Outpatient (CLI) | payer OTHER, SELFPAY ==
[2023-03-31 12:34] LABS: Absolute Lymphocyte Count 1.53 X10^3/uL (0.83-4.51); Absolute Neutrophil Count 7.7 X10^3/uL (2.0-7.7); Basophil# 0.02 X10^3/uL; Basophil% 0.2 % (0-1); Eosinophil# 0.03 X10^3/uL; Eosinophils% 0.3 % (0-5); Hematocrit 33.8 % (37-47); Hemoglobin 10.8 g/dL (12.0-15.0); Lymphocyte # 1.53 X10^3/ul (0.83-4.51); Lymphocyte % 14.8 % (19-41); Mean Corpuscular Hgb 28.9 pg (27.0-32.0); Mean Corpuscular Volume 90.4 fL (81-99); Mean Platelet Vol. 9.3 fl (6.2-12.0); Monocyte% 7.8 % (0-10); NRBC Flagged by Analyzer 0 % (0-5); Neutrophil # 7.67 X10^3/uL (2.7-7.7); Neutrophil % 74.3 % (47-70); Platelet Count 250 K/mm3 (150-450); RBC Distribution Width CV 12.2 % (11.6-14.6); RBC Distribution Width SD 40.3 fl (35.1-43.9); Red Blood Count 3.74 M/mm3 (4.2-5.4); White Blood Count 10.3 K/mm3 (4.4-11.0)
[2023-03-31 13:22] LABS: HIV - WCH Non-Reactive (Nonreactive); Syphilis Antibodies Non-reactive
== END | disposition home or self-care (01) ==
LOC: LAB 11:55
PROVIDERS: PCP Nurse Practitioner Primary Care; Referring Provider Obstetrics & Gynecology; Visit Provider Obstetrics & Gynecology
DX: O09.90 Supervision of high risk pregnancy, unspecified, unspecified trimester (principal); Z3A.00 Weeks of gestation of pregnancy not specified
CPT/HCPCS: 36415; 85025; 86703; 86780

== ENCOUNTER → 2023-04-04 | Outpatient (CLI) | payer OTHER, SELFPAY ==
[2023-04-08 23:06] LABS: HPV Reflexed? NOT INDICATED
== END | disposition home or self-care (01) ==
PROVIDERS: PCP Nurse Practitioner Primary Care; Visit Provider Registered Nurse
DX: Z12.4 Encounter for screening for malignant neoplasm of cervix (principal)
CPT/HCPCS: 87070; 87205; 88175; G0145

== ENCOUNTER → 2023-05-04 | Outpatient (CLI) | payer OTHER, SELFPAY | END | disposition home or self-care (01) | LOC: LABSPEC 15:44 | PROVIDERS: PCP Nurse Practitioner Primary Care; Referring Provider Obstetrics & Gynecology; Visit Provider Obstetrics & Gynecology | DX: O09.90 Supervision of high risk pregnancy, unspecified, unspecified trimester (principal); Z3A.00 Weeks of gestation of pregnancy not specified | CPT/HCPCS: 87081 ==

== ENCOUNTER 2023-05-18 22:30 | Outpatient (CLI) | payer OTHER, SELFPAY ==
[2023-05-18 22:50] VITALS: BMI 27.1
[2023-05-18 23:08] LABS: ROM Internal Control Test YES-OK TO RESULT pt. (Internal QC); ROM Patient Test Negative (Negative)
--- NOTE | 2023-05-18 23:09 | OB.TRI.NOTE ---
HPI - General HPI Narrative MARJORIE GOMEZ, is a 27 y/o @ 38 weeks 1 day who presents to L&d with the complaint of possible leaking fluid. no vaginal bleeding, or decreased movement Maternal Data Information ENEIDA Calculator Estimated Delivery Date Method Current WG Current Estimate 06/01/23 Ultrasound #1 38w 1d PFSH PFS Medical History Adenoma of breast Adopted Anxiety Mild anemia (spontaneous vaginal delivery) Home Medications vits no.126-ferrous fum 28 mg iron-folic acid 800 mcg tablet (Classic ) tab PO 10/29/22 [History Last Taken Unknown] breast pump #1 ea 02/15/23 [Rx Last Taken Unknown] docusate sodium 100 mg capsule (Colace) 100 mg PO DAILY 04/13/23 [History Last Taken Unknown] ferrous sulfate 325 mg (65 mg iron) tablet 325 mg PO .every other day 04/13/23 [History Last Taken Unknown] ondansetron 4 mg disintegrating tablet 4 mg PO Q8H #30 tabs 05/04/23 [Rx Last Taken Unknown] Allergy/AdvReac Type Severity Reaction Status Date / Time No Known Allergies Allergy Verified 05/19/23 15:58 Social History adopted: Yes household members: spouse housing: house current occupational status: employed 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 Date Name GA/Weeks Outcome Route Bth Weight Infant Gen Labor Lgth Anesthesia Del Locatn Provider FOB 10/19/21 [facility] 38 live - full term Female epidural [employer] Suly Velarde Delivery Date: 10/19/21 Last Updated by: Itzel Myles see problem list for complications, and IAL SROM 38 SM girl [facility] Visit Details Expected Delivery Route/Plan Labor Preferences- CB/BF classes: [] labor support person: [] labor intervention preferences: [] pain management options preferred: [] cut cord/dad catch: [] : [] PP control planned: [] discussed possible routes of delivery and associated risks: [] special requests: [] Plans Covid status: Flu vaccine: declined Tdap vaccine: [] Rhogam: [] LARC form signed: [] Problem list reviewed and updated with the most current plan of care details and appropriate orders placed. Relevant counseling for the gestational age provided. Continue routine care and follow up unless otherwise noted in visit notes/problem list details OB Flowsheet Initial Weight: Not Recorded Date <del>?</del> EGA Weight BP Urine Prot <del>?</del> Glucose FHR FuHt Pres Dilation <del>?</del> Effaced St Visit Note 10/29/22 <del>?</del> 9w 2d <del>?</del> 185 <del>?</del> LC- ENEIDA confirmed with first trimester us. ENEIDA 06/01/23. declines nipt. unable to complete APL work up d/t x2 miscarriages. 11/24/22 <del>?</del> 13w 0d 135 lb 2 oz 95/65 Negative <del>?</del> Negative 168 <del>?</del> JV- CRL today consistent with established gestational age. no complaints. normal labs reviewed. 12/20/22 <del>?</del> 16w 5d 140 lb 2 oz 97/60 Negative <del>?</del> Negative 152 <del>?</del> JV- no lof, vaginal bleeding, or dec fm. she declines flu vaccine and has an exemption from the hospital. 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 no complaints. glucola next visit. JV- no cramping or bleeding. no complaints. glucola next visit. breast pump rx given. 02/28/23 <del>?</del> 26w 5d 157 lb 108/71 Negative <del>?</del> Negative 144 26 <del>?</del> JV- pt complains of back pain, otherwise no other complaints. plans to do her gct this weekend 03/17/23 <del>?</del> 29w 1d 158 lb 6 oz 113/68 Negative <del>?</del> Negative 149 29 <del>?</del> JV- plan for tdap next visit. no lof vaginal bleeding, or dec fm. 03/31/23 <del>?</del> 31w 1d 164 lb 4 oz 100/69 Negative <del>?</del> Negative 145 31 <del>?</del> KW- no vb/lof/ctx. good fm. Tdap and LARC today. KW- no vb/lof/ctx. good fm. Tdap and LARC today. labs done today-not drawn at 28 weeks 04/04/23 <del>?</del> 31w 5d 163 lb 107/75 Negative <del>?</del> Negative 135 32 <del>?</del> LC-no lof/ctx. had light vaginal bleeding after straining with BM. speculum exam with excoriated cervix. pap, genital culture obtained. 04/13/23 <del>?</del> 33w 0d 166 lb 115/79 Negative <del>?</del> Negative 135 33 <del>?</del> JV- no lof, vaginal bleeding, or dec fm. no further bleeding. 04/27/23 <del>?</del> 35w 0d 167 lb 90/72 Negative <del>?</del> Negative 145 35 <del>?</del> JV- no lof, vaginal bleeding, or dec fm. no complaints. 05/04/23 <del>?</del> 36w 0d 168 lb 8 oz 113/75 Negative <del>?</del> Negative 150 36 Cephalic 0.5 <del>?</del> 50 -3 JV- no lof, vaginal bleeding, or dec fm. gbs collected. 05/12/23 <del>?</del> 37w 1d 168 lb 112/75 <del>?</del> 140 37 Cephalic 1.5 <del>?</del> 50 -2 SM- no vb lof good fm no reuglar ctx 05/19/23 <del>?</del> 38w 1d 169 lb 106/73 Negative <del>?</del> Negative 140 39 Cephalic 3.5 <del>?</del> 70 -1 kw-no vb/lof/ctx. good fm. requesting membrane sweep today ROS Constitutional Constitutional: Reports systems reviewed and no addt'l complaints, except as documented Gastrointestinal Gastrointestinal: Denies bloating, constipation, cramping, diarrhea, nausea or vomiting Genitourinary Genitourinary: Reports other Details: Denies vaginal odor, vaginal bleeding, or vaginal discharge ; Denies difficulty urinating or flank pain NST FHR Rate Baby A Baseline: 120- 130 Variability:: Moderate Accelerations:: 15 x 15 Decelerations:: None NST Reactive:: Yes FHR Category:: Category I Assessment & Plan (1) Anemia in preg-unspec: COMMENT: start OTC iron (2) Adopted: COMMENT: patient is adopted and does not know her family history works as nurse at [employer] (3) Supervision of high-risk : COMMENT: PRR ENEIDA 06/01/2023 azael PC:[facility]. : Steven (4) : QUALIFIERS: Weeks of gestation: 38 weeks Qualified Code(s): Z3A.38 - 38 weeks gestation of COMMENT: declines nipt, nl anatomy (5) False labor after 37 completed weeks of gestation: PLAN: rom plus is negative ok to discharge to home. Charges/Coding Multi Select Codes Urinary/Genital Urinary/Genital CPT Codes: 54488-72 non-stress test Interp
--- NOTE | 2023-05-18 23:09 | OB.TRI.HP_ITS ---
HPI - General HPI Narrative MARJORIE GOMEZ, is a 27 y/o @ 38 weeks 1 day who presents to L&d with the complaint of possible leaking fluid. no vaginal bleeding, or decreased movement Maternal Data Information ENEIDA Calculator Estimated Delivery Date Method Current WG Current Estimate 06/01/23 Ultrasound #1 38w 1d PFSH PFS Medical History Adenoma of breast Adopted Anxiety Mild anemia (spontaneous vaginal delivery) Home Medications vits no.126-ferrous fum 28 mg iron-folic acid 800 mcg tablet (Classic ) tab PO 10/29/22 [History Last Taken Unknown] breast pump #1 ea 02/15/23 [Rx Last Taken Unknown] docusate sodium 100 mg capsule (Colace) 100 mg PO DAILY 04/13/23 [History Last Taken Unknown] ferrous sulfate 325 mg (65 mg iron) tablet 325 mg PO .every other day 04/13/23 [History Last Taken Unknown] ondansetron 4 mg disintegrating tablet 4 mg PO Q8H #30 tabs 05/04/23 [Rx Last Taken Unknown] Allergy/AdvReac Type Severity Reaction Status Date / Time No Known Allergies Allergy Verified 05/19/23 15:58 Social History adopted: Yes household members: spouse housing: house current occupational status: employed 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 Date Name GA/Weeks Outcome Route Bth Weight Infant Gen Labor Lgth Anesthesia Del Locatn Provider FOB 10/19/21 [facility] 38 live - full term Female epidu ral [employer] [facility] [employer] Suly Velarde Delivery Date: 10/19/21 Last Updated by: Itzel Myles see problem list for complications, and IAL SROM 38 SM girl [facility] Visit Details Expected Delivery Route/Plan Labor Preferences- CB/BF classes: [] labor support person: [] labor intervention preferences: [] pain management options preferred: [] cut cord/dad catch: [] : [] PP control planned: [] discussed possible routes of delivery and associated risks: [] special requests: [] Plans Covid status: Flu vaccine: declined Tdap vaccine: [] Rhogam: [] LARC form signed: [] Problem list reviewed and updated with the most current plan of care details and appropriate orders placed. Relevant counseling for the gestational age provided. Continue routine care and follow up unless otherwise noted in visit notes/problem list details OB Flowsheet Initial Weight: Not Recorded Date -?-?-?-?-?-?-?-?-?-?-?-?- EGA Weight BP Urine Prot -?-?-?-?-?-?-?-?-?-?-?-?- Glucose FHR FuHt Pres Dilation -?-?-?-?-?-?-?-?-?-?-?-?- Effaced St Visit Note 10/29/22 -?-?-?-?-?-?-?-?-?-?-?-?- 9w 2d -?-?-?-?-?-?-?-?-?-?-?-?- 185 -?-?-?-?-?-?-?-?-?-?-?-?- LC- ENEIDA confirme d with first trimester us. ENEIDA 06/01/23. declines nipt. unable to complete APL work up d/t x2 miscarriages. 11/24/22 -?-?-?-?-?-?-?-?-?-?-?-?- 13w 0d 135 lb 2 oz 95/65 Nega tive -?-?-?-?-?-?-?-?-?-?-?-?- Negative 168 -?-?-?-?-?-?-?-?-?-?-?-?- JV- CRL today co nsistent with established gestational age. no complaints. normal labs reviewed. 12/20/22 -?-?-?-?-?-?-?-?-?-?-?-?- 16w 5d 140 lb 2 oz 97/60 Nega tive -?-?-?-?-?-?-?-?-?-?-?-?- Negative 152 -?-?-?-?-?-?-?-?-?--?-?-?- JV- no lof, vagi nal bleeding, or dec fm. she declines flu vaccine and has an exemption from the hospital. 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 no complaints. glucola next visit. JV- no cramping or bleeding. no complaints. glucola next visit. breast pump rx given. 02/28/23 -?-?-?-?-?-?-?-?-?-?-?-?- 26w 5d 157 lb 108/71 Negative -?-?-?-?-?-?-?-?-?-?-?-?- Negative 144 26 -?-?-?-?-?-?-?-?-?-?-?-?- JV- pt complains of back pain, otherwise no other complaints. plans to do her gct this 03/17/23 -?-?-?-?-?-?-?-?-?-?-?-?- 29w 1d 158 lb 6 oz 113/68 Nega tive -?-?-?-?-?-?--?-?-?-?-?-?- Negative 149 29 -?-?-?-?-?-?-?-?-?-?-?-?- JV- plan for tda p next visit. no lof vaginal bleeding, or dec fm. 03/31/23 -?-?-?-?-?-?-?-?-?--?-?-?- 31w 1d 164 lb 4 oz 100/69 Nega tive -?-?-?-?-?-?-?-?-?-?-?-?- Negative 145 31 -?-?-?-?-?-?-?-?-?-?-?-?- KW- no vb/lof/ct x. good fm. Tdap and LARC today. KW- no vb/lof/ctx. good fm. Tdap and LARC today. labs done today-not drawn at 28 weeks 04/04/23 -?-?-?-?-?-?-?-?-?-?-?-?- 31w 5d 163 lb 107/75 Negative -?-?-?-?-?-?-?-?-?-?-?-?- Negative 135 32 -?-?-?-?-?-?-?-?-?-?-?-?- LC-no lof/ctx. h ad light vaginal bleeding after straining with BM. speculum exam with excoriated cervix. pap, genital culture obtained. 04/13/23 -?-?-?-?-?-?-?-?-?-?-?-?- 33w 0d 166 lb 115/79 Negative -?-?-?-?-?-?-?-?-?-?-?-?- Negative 135 33 -?-?-?-?-?-?-?-?-?-?-?-?- JV- no lof, vagi nal bleeding, or dec fm. no further bleeding. 04/27/23 -?-?-?-?-?-?-?-?-?-?-?-?- 35w 0d 167 lb 90/72 Negative -?-?-?-?-?-?-?-?-?-?-?-?- Negative 145 35 -?-?-?-?-?-?-?-?-?-?-?-?- JV- no lof, vagi nal bleeding, or dec fm. no complaints. 05/04/23 -?-?-?-?-?-?-?-?-?-?-?-?- 36w 0d 168 lb 8 oz 113/75 Nega tive -?-?-?-?-?-?-?-?-?-?-?-?- Negative 150 36 Cephalic 0 .5 -?-?-?-?-?-?-?-?-?-?-?--?- 50 -3 JV- no lof , vaginal bleeding, or dec fm. gbs collected. 05/12/23 -?-?-?-?-?-?-?-?-?-?-?-?- 37w 1d 168 lb 112/75 -?-?-?-?-?-?-?-?-?-?-?-?- 140 37 Cephalic 1.5 -?-?-?-?-?-?-?-?-?-?-?-?- 50 -2 SM- no vb lof good fm no reuglar ctx 05/19/23 -?-?-?-?-?-?-?-?-?-?-?-?- 38w 1d 169 lb 106/73 Negative -?-?-?-?-?-?-?-?-?-?-?-?- Negative 140 39 Cephalic 3 .5 -?-?-?-?-?-?-?-?-?-?-?-?- 70 -1 kw-no vb/l of/ctx. good fm. requesting membrane sweep today ROS Constitutional Constitutional: Reports systems reviewed and no addt'l complaints, except as documented Gastrointestinal Gastrointestinal: Denies bloating, constipation, cramping, diarrhea, nausea or vomiting Genitourinary Genitourinary: Reports other Details: Denies vaginal odor, vaginal bleeding, or vaginal discharge ; Denies difficulty urinating or flank pain NST FHR Rate Baby A Baseline: 120- 130 Variability:: Moderate Accelerations:: 15 x 15 Decelerations:: None NST Reactive:: Yes FHR Category:: Category I Assessment & Plan (1) Anemia in preg-unspec: COMMENT: start OTC iron (2) Adopted: COMMENT: patient is adopted and does not know her family history works as nurse at [employer] (3) Supervision of high-risk : COMMENT: PRR ENEIDA 06/01/2023 azael PC:[facility]. : Steven (4) : QUALIFIERS: Weeks of gestation: 38 weeks Qualified Code(s): Z3A.38 - 38 weeks gestation of COMMENT: declines nipt, nl anatomy (5) False labor after 37 completed weeks of gestation: PLAN: rom plus is negative ok to discharge to home. Charges/Coding Multi Select Codes Urinary/Genital Urinary/Genital CPT Codes: 42690-33 non-stress test Interp
[2023-05-18 23:15] VITALS: BP 108/66; PULSE 74; TEMP 37.7; O2SAT 97
== END 2023-05-18 23:20 | disposition home or self-care (01) ==
LOC: WPOUT 22:33 → WP 22:33
PROVIDERS: PCP Nurse Practitioner Primary Care; Referring Provider Obstetrics & Gynecology; Visit Provider Obstetrics & Gynecology
DX: O47.1 False labor at or after 37 completed weeks of gestation (principal); O99.013 Anemia complicating pregnancy, third trimester; Z3A.38 38 weeks gestation of pregnancy
CPT/HCPCS: 59025; 59050; 84112; 99221; G0378

== ENCOUNTER 2023-05-19 23:50 | Inpatient (IN) | payer OTHER, SELFPAY ==
[2023-05-19 18:22] VITALS: TEMP 37.2; O2SAT 96
[2023-05-19 18:23] VITALS: BP 120/59; PULSE 86
[2023-05-19 18:34] VITALS: BMI 26.7
[2023-05-19] MEDS: 0.9% Saline Lock 10 ML Syringe IV (22:25)
[2023-05-19 22:30] VITALS: BP 125/70; PULSE 86; TEMP 36.9; O2SAT 96
[2023-05-20] VITALS (41 sets, daily range): BP systolic 84–124; BP diastolic 45–84; PULSE 65–100; RESP 16–18; TEMP 36.1–37.4; O2SAT 16–100
[2023-05-20] MEDS: Lactated Ringers 1,000 ML 50 ML IV (00:25)
[2023-05-20] MEDS: LACTATED RINGERS 500 ML 999 ML IV (00:53)
[2023-05-20 00:57] LABS: Absolute Lymphocyte Count 1.97 X10^3/uL (0.83-4.51); Absolute Neutrophil Count 9.5 X10^3/uL (2.0-7.7); Basophil# 0.04 X10^3/uL; Basophil% 0.3 % (0-1); Eosinophil# 0.05 X10^3/uL; Eosinophils% 0.4 % (0-5); Hematocrit 33.1 % (37-47); Hemoglobin 10.5 g/dL (12.0-15.0); Lymphocyte # 1.97 X10^3/ul (0.83-4.51); Lymphocyte % 15.6 % (19-41); Mean Corp Hgb Conc 31.7 g/dL (32-36); Mean Corpuscular Hgb 28.2 pg (27.0-32.0); Mean Corpuscular Volume 88.7 fL (81-99); Mean Platelet Vol. 9.9 fl (6.2-12.0); Monocyte# 0.92 X10^3/uL; Monocyte% 7.3 % (0-10); NRBC Flagged by Analyzer 0 % (0-5); Neutrophil # 9.48 X10^3/uL (2.7-7.7); Neutrophil % 74.9 % (47-70); Platelet Count 273 K/mm3 (150-450); RBC Distribution Width CV 13.1 % (11.6-14.6); RBC Distribution Width SD 42.8 fl (35.1-43.9); Red Blood Count 3.73 M/mm3 (4.2-5.4); White Blood Count 12.7 K/mm3 (4.4-11.0)
[2023-05-20] MEDS: fentaNYL-bupivacaine (epidural) 100 ML BAG EPIDURAL (01:40)
[2023-05-20 02:31] LABS: Syphilis Antibodies Non-reactive
[2023-05-20] MEDS: Lactated Ringers 1,000 ML 200 ML IV (04:51)
[2023-05-20] MEDS: Oxytocin 10 UNITS/ML Vial IM (05:04)
[2023-05-20] MEDS: Oxytocin 15 Units/NS 250ml 15 UNITS/250 ML IV.SOLN 83 UNITS IV (05:05)
--- NOTE | 2023-05-20 06:35 | HP.PCM.OB_ITS ---
HPI - General General Date of Admission: 05/19/23 HPI Narrative MARJORIE GOMEZ, is a 27 F who presents IAL made change to 5 cm regular ctx no vb lof admits good fm Maternal Data Information ENEIDA Calculator Estimated Delivery Date Method Current WG Current Estimate 06/01/23 Ultrasound #1 38w 2d PFSH PFS Medical History Adenoma of breast Adopted Anxiety Mild anemia (spontaneous vaginal delivery) Home Medications vits no.126-ferrous fum 28 mg iron-folic acid 800 mcg tablet (Classic ) tab PO 10/29/22 [History Last Taken Unknown] breast pump #1 ea 02/15/23 [Rx Last Taken Unknown] docusate sodium 100 mg capsule (Colace) 100 mg PO DAILY 04/13/23 [History Last Taken Unknown] ferrous sulfate 325 mg (65 mg iron) tablet 325 mg PO .every other day 04/13/23 [History Last Taken Unknown] ondansetron 4 mg disintegrating tablet 4 mg PO Q8H #30 tabs 05/04/23 [Rx Last Taken Unknown] Allergy/AdvReac Type Severity Reaction Status Date / Time No Known Allergies Allergy Verified 05/19/23 19:24 Social History adopted: Yes household members: spouse housing: house current occupational status: employed 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 Date Name GA/Weeks Outcome Route Bth Weight Infant Gen Labor Lgth Anesthesia Del Locatn Provider FOB 10/19/21 Jewell 38 live - full term Female epidu ral [employer] Suly Velarde Delivery Date: 10/19/21 Last Updated by: Itzel Myles see problem list for complications, and IAL SROM 38 SM girl Jewell Visit Details Expected Delivery Route/Plan Labor Preferences- CB/BF classes: [] labor support person: [] labor intervention preferences: [] pain management options preferred: [] cut cord/dad catch: [] : [] PP control planned: [] discussed possible routes of delivery and associated risks: [] special requests: [] Plans Covid status: Flu vaccine: declined Tdap vaccine: [] Rhogam: [] LARC form signed: [] Problem list reviewed and updated with the most current plan of care details and appropriate orders placed. Relevant counseling for the gestational age provided. Continue routine care and follow up unless otherwise noted in visit notes/problem list details OB Flowsheet Initial Weight: Not Recorded Date -?-?-?-?-?-?-?-?-?-?-?-?- EGA Weight BP Urine Prot -?-?-?-?-?-?-?-?-?-?-?-?- Glucose FHR FuHt Pres Dilation -?-?-?-?-?-?-?-?-?-?-?-?- Effaced St Visit Note 10/29/22 -?-?-?-?-?-?-?-?-?-?-?-?- 9w 2d -?-?-?-?-?-?-?-?-?-?-?-?- 185 -?-?-?-?-?-?-?-?-?-?-?-?- LC- ENEIDA confirme d with first trimester us. ENEIDA 06/01/23. declines nipt. unable to complete APL work up d/t x2 miscarriages. 11/24/22 -?-?-?-?-?-?-?-?-?-?-?-?- 13w 0d 135 lb 2 oz 95/65 Nega tive -?-?-?-?-?-?-?-?-?-?-?-?- Negative 168 -?-?-?-?-?-?-?-?-?-?-?-?- JV- CRL today co nsistent with established gestational age. no complaints. normal labs reviewed. 12/20/22 -?-?-?-?-?-?-?-?-?-?-?-?- 16w 5d 140 lb 2 oz 97/60 Nega tive -?-?-?-?-?-?-?-?-?-?-?-?- Negative 152 -?-?-?-?-?-?-?-?-?-?-?-?- JV- no lof, vagi nal bleeding, or dec fm. she declines flu vaccine and has an exemption from the hospital. 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 no complaints. glucola next visit. JV- no cramping or bleeding. no complaints. glucola next visit. breast pump rx given. 02/28/23 -?-?-?-?-?-?-?-?-?-?-?-?- 26w 5d 157 lb 108/71 Negative -?-?-?-?-?-?-?-?-?-?-?-?- Negative 144 26 -?-?-?-?-?-?-?-?-?-?-?-?- JV- pt complains of back pain, otherwise no other complaints. plans to do her gct this 03/17/23 -?-?-?-?-?-?-?-?-?-?-?-?- 29w 1d 158 lb 6 oz 113/68 Nega tive -?-?-?-?-?-?-?-?-?-?-?-?- Negative 149 29 -?-?-?-?-?-?-?-?-?-?-?-?- JV- plan for tda p next visit. no lof vaginal bleeding, or dec fm. 03/31/23 -?-?-?-?-?-?-?-?-?-?-?-?- 31w 1d 164 lb 4 oz 100/69 Nega tive -?-?-?-?-?-?-?-?-?-?-?-?- Negative 145 31 -?-?-?-?-?-?-?-?-?-?-?-?- KW- no vb/lof/ct x. good fm. Tdap and LARC today. KW- no vb/lof/ctx. good fm. Tdap and LARC today. labs done today-not drawn at 28 weeks 04/04/23 -?-?-?-?-?-?-?-?-?-?-?-?- 31w 5d 163 lb 107/75 Negative -?-?-?-?-?-?-?-?-?-?-?-?- Negative 135 32 -?-?-?-?-?-?-?-?-?-?-?-?- LC-no lof/ctx. h ad light vaginal bleeding after straining with BM. speculum exam with excoriated cervix. pap, genital culture obtained. 04/13/23 -?-?-?-?-?-?-?-?-?-?-?-?- 33w 0d 166 lb 115/79 Negative -?-?-?-?-?-?-?-?-?-?-?-?- Negative 135 33 -?-?-?-?-?-?-?-?-?-?-?-?- JV- no lof, vagi nal bleeding, or dec fm. no further bleeding. 04/27/23 -?-?-?-?-?-?-?-?-?-?-?-?- 35w 0d 167 lb 90/72 Negative -?-?-?-?-?-?-?-?-?-?-?-?- Negative 145 35 -?-?-?-?-?-?-?-?-?-?-?-?- JV- no lof, vagi nal bleeding, or dec fm. no complaints. 05/04/23 -?-?-?-?-?-?-?-?-?-?-?-?- 36w 0d 168 lb 8 oz 113/75 Nega tive -?-?-?-?-?-?-?-?-?-?-?-?- Negative 150 36 Cephalic 0 .5 -?-?-?-?-?-?-?-?-?-?-?-?- 50 -3 JV- no lof , vaginal bleeding, or dec fm. gbs collected. 05/12/23 -?-?-?-?-?-?-?-?-?-?-?-?- 37w 1d 168 lb 112/75 -?-?-?-?-?-?-?-?-?-?-?-?- 140 37 Cephalic 1.5 -?-?-?-?-?-?-?-?-?-?-?-?- 50 -2 SM- no vb lof good fm no reuglar ctx 05/19/23 -?-?-?-?-?-?-?-?-?-?-?-?- 38w 1d 169 lb 106/73 Negative -?-?-?-?-?-?-?-?-?-?-?-?- Negative 140 39 Cephalic 3 .5 -?-?-?-?-?-?-?-?-?-?-?-?- 70 -1 kw-no vb/l of/ctx. good fm. requesting membrane sweep today NST FHR Rate Baby A Baseline: 140 Variability:: Moderate Accelerations:: 15 x 15 Decelerations:: None NST Reactive:: Yes FHR Category:: Category I Uterine Activity:: q3-5 ROS Constitutional Constitutional: Reports systems reviewed and no addt'l complaints, except as documented ENT HEENT: Reports systems reviewed and no addt'l complaints, except as documented Cardiovascular Cardiovascular: Reports systems reviewed and no addt'l complaints, except as documented Respiratory/Chest Respiratory/Chest: Reports systems reviewed and no addt'l complaints, except as documented Gastrointestinal Gastrointestinal: Reports systems reviewed and no addt'l complaints, except as documented and nausea; Denies abdominal pain Genitourinary Genitourinary: Reports systems reviewed and no addt'l complaints, except as documented, contractions Details: present and frequency (regular ) and movement Details: present Musculoskeletal Musculoskeletal: Reports systems reviewed and no addt'l complaints, except as documented Integumentary Integumentary: Reports as per HPI Neurologic Neurologic: Reports systems reviewed and no addt'l complaints, except as documented Endocrine Endocrinology: Reports systems reviewed and no addt'l complaints, except as documented Vital Signs Vital Signs Vital Signs: 05/19/23 18:23 05/19/23 18:23 05/19/23 18:22 Temperature Pulse Rate 86 Blood Pressure 120/59 L BP Systolic 120 BP Diastolic 59 Pulse Ox 96 05/19/23 18:22 05/19/23 22:30 05/19/23 22:30 Temperature 99.0 F Pulse Rate 86 Blood Pressure 125/70 H BP Systolic 125 BP Diastolic 70 Pulse Ox 05/19/23 22:30 05/19/23 22:30 05/20/23 00:46 Temperature 98.4 F Pulse Rate Blood Pressure 94/50 L BP Systolic 94 BP Diastolic 50 Pulse Ox 96 05/20/23 00:46 05/20/23 00:46 05/20/23 00:46 Temperature 98.4 F Pulse Rate 74 70 Blood Pressure BP Systolic BP Diastolic Pulse Ox 05/20/23 00:46 05/20/23 01:23 05/20/23 01:23 Temperature Pulse Rate 70 Blood Pressure 114/79 BP Systolic 114 BP Diastolic 79 Pulse Ox 98 05/20/23 01:23 05/20/23 01:23 05/20/23 01:28 Temperature Pulse Rate 69 Blood Pressure 115/84 H BP Systolic 115 BP Diastolic 84 Pulse Ox 100 05/20/23 01:28 05/20/23 01:28 05/20/23 01:33 Temperature Pulse Rate 79 Blood Pressure 117/81 H BP Systolic 117 BP Diastolic 81 Pulse Ox 99 05/20/23 01:33 05/20/23 01:33 05/20/23 01:38 Temperature Pulse Rate 80 Blood Pressure 103/67 BP Systolic 103 BP Diastolic 67 Pulse Ox 99 05/20/23 01:38 05/20/23 01:38 05/20/23 01:43 Temperature Pulse Rate 72 Blood Pressure 104/60 BP Systolic 104 BP Diastolic 60 Pulse Ox 97 05/20/23 01:43 05/20/23 01:43 05/20/23 01:49 Temperature Pulse Rate 81 Blood Pressure 108/60 BP Systolic 108 BP Diastolic 60 Pulse Ox 97 05/20/23 01:49 05/20/23 01:48 05/20/23 01:54 Temperature Pulse Rate 78 Blood Pressure 96/70 BP Systolic 96 BP Diastolic 70 Pulse Ox 99 05/20/23 01:54 05/20/23 01:53 05/20/23 01:58 Temperature Pulse Rate 77 74 Blood Pressure BP Systolic BP Diastolic Pulse Ox 97 05/20/23 01:58 05/20/23 02:00 05/20/23 02:00 Temperature Pulse Rate 73 Blood Pressure 110/68 BP Systolic 110 BP Diastolic 68 Pulse Ox 99 05/20/23 02:03 05/20/23 02:03 05/20/23 02:04 Temperature Pulse Rate 70 Blood Pressure 103/58 L BP Systolic 103 BP Diastolic 58 Pulse Ox 98 05/20/23 02:04 05/20/23 02:10 05/20/23 02:10 Temperature Pulse Rate 66 71 Blood Pressure 84/45 L BP Systolic 84 BP Diastolic 45 Pulse Ox 05/20/23 02:11 05/20/23 02:11 05/20/23 02:41 Temperature Pulse Rate 67 Blood Pressure 95/61 124/58 H BP Systolic 95 124 BP Diastolic 61 58 Pulse Ox 05/20/23 02:41 05/20/23 02:41 05/20/23 02:41 Temperature 98.2 F Pulse Rate 77 Blood Pressure BP Systolic BP Diastolic Pulse Ox 97 05/20/23 02:46 05/20/23 02:46 05/20/23 03:45 Temperature Pulse Rate 76 Blood Pressure 95/57 L BP Systolic 95 BP Diastolic 57 Pulse Ox 98 05/20/23 03:45 05/20/23 03:44 05/20/23 03:45 Temperature 97.5 F L Pulse Rate 70 Blood Pressure BP Systolic BP Diastolic Pulse Ox 98 05/20/23 04:52 05/20/23 04:52 02/23/24 04:52 Temperature 98.1 F Pulse Rate 81 Blood Pressure 112/60 BP Systolic 112 BP Diastolic 60 Pulse Ox 05/20/23 05:11 05/20/23 05:11 05/20/23 05:11 Temperature Pulse Rate 83 Blood Pressure 104/58 L BP Systolic 104 BP Diastolic 58 Pulse Ox 85 05/20/23 05:11 05/20/23 05:24 05/20/23 05:24 Temperature Pulse Rate 81 Blood Pressure 107/60 BP Systolic 107 BP Diastolic 60 Pulse Ox 99 05/20/23 05:25 05/20/23 05:39 05/20/23 05:39 Temperature 98.1 F Pulse Rate 86 Blood Pressure 120/67 BP Systolic 120 BP Diastolic 67 Pulse Ox 05/20/23 05:54 05/20/23 05:54 05/20/23 06:09 Temperature Pulse Rate 90 Blood Pressure 115/83 H 116/56 L BP Systolic 115 116 BP Diastolic 83 56 Pulse Ox 05/20/23 06:09 05/20/23 06:09 05/20/23 06:09 Temperature 99.3 F H Pulse Rate 91 90 Blood Pressure BP Systolic BP Diastolic Pulse Ox 05/20/23 06:09 05/20/23 06:10 05/20/23 06:24 Temperature Pulse Rate Blood Pressure 122/58 H BP Systolic 122 BP Diastolic 58 Pulse Ox 98 16 05/20/23 06:24 Temperature Pulse Rate 85 Blood Pressure BP Systolic BP Diastolic Pulse Ox Weight Weight: 171 lb Body Mass Index (BMI) 26.7 Physical Exam Const alert, oriented x3 and healthy appearing Constitutional Narrative: uncomfortable with contractions HEENT normocephalic and moist oral mucous membranes Head and Scalp: atraumatic Neck full ROM, no lymphadenopathy, supple and thyroid normal General: trachea midline Thyroid: thyroid normal Lymph Lymphatic: no lymphadenopathy noted Chest inspection of chest normal Resp normal respiratory effort Cardio regular rate GI normal to inspection, nondistended, normoactive bowel sounds, soft to palpation and non-tender Inspection: gravid external exam normal Bimanual Exam - Vag & Uterus: uterus non-tender Manual OB Exam: estimated gestational size appropriate, presentation cephalic, dilated, effaced and station Extremity normal to inspection General Extremity: Negative for edema Skin no rashes or lesions noted Neuro deep tendon reflexes 2+ bilaterally Motor Exam: strength 5/5 throughout and clonus absent Psych mental status grossly normal Labs Labs Labs: Blood Type A POSITIVE Antibody Screen NEGATIVE Hct 33.1 % (37-47) L Hgb 10.5 g/dL (12.0-15.0) L Pap Smear Negative Obstetrics Ultrasound Syphilis Total Ab Non-reactive Rubella IgG Antibody Reactive (Nonreactive) Hep Bs Antigen Non-Reactive (Nonreactive) Hepatitis C Antibody Non-Reactive (Nonreactive) Chlamydia DNA (CHETNA) Negative (Negative) N.gonorrhoeae DNA (CHETNA) Negative (Negative) HIV 1&2 Antibody Non-Reactive (Nonreactive) Glucose 1 Hr 50 gm 100 mg/dL (70-140) Rhogam given: No Assessment & Plan (1) Anemia in preg-unspec: COMMENT: start OTC iron (2) Adopted: COMMENT: patient is adopted and does not know her family history works as nurse at [employer] (3) Supervision of high-risk : COMMENT: PRR ENEIDA 06/01/2023 surprisish PC:Jewell. : Steven (4) : QUALIFIERS: Weeks of gestation: 38 weeks Qualified Code(s): Z3A.38 - 38 weeks gestation of COMMENT: declines nipt, nl anatomy (5) Active labor at term: PLAN: Plan Patient presents IAL, plan expectant management for , pitocin/AROM PRN if needed. Pain management: plans epidural. GBS neg. Management of any complications: none I have reviewed the [facility] and made any clinically relevant updates.
--- NOTE | 2023-05-20 06:36 | OP.PCM_ITS ---
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 : Steven (5) : QUALIFIERS: Weeks of gestation: 38 weeks Qualified Code(s): Z3A.38 - 38 weeks gestation of COMMENT: declines nipt, nl anatomy (6) Vaginal delivery: COMMENT: SM IAL boy 38 Maternal Data Information ENEIDA Calculator Estimated Delivery Date Method Current WG Current Estimate 06/01/23 Ultrasound #1 38w 2d Vaginal Delivery Operative Information Date of Procedure: 05/20/23 Pre-Operative Diagnosis: see a/p diagnoses Post-Operative Diagnosis: same Surgery / Procedure Performed: Spontaneous Vaginal Delivery Type of Anesthesia: Epidural Special Medications: none Estimated Blood Loss: 200 Fluids Replaced: crystalloid Findings Description of Procedure: Patient began pushing and delivered the head in the LEONOR presentation. The head was delivered atraumatically . The anterior and posterior shoulders delivered without complication followed by the rest of the infant and the was placed on the maternal abdomen. Delayed cord clamping was employed for approximately 60 seconds. Cord was clamped and cut and gentle traction was applied to the cord and the placenta delivered spontaneously immediately following it was noted to be intact with three-vessel cord. The perineum and vagina were inspected and noted to have no laceration. EBL was 200 cc. Patient and infant tolerated delivery well. Amniotic Fluid Description: Clear Placental Delivery Description: Spontaneous Placenta Disposition: [facility] Cord Vessel Description: 3 Vessels Cord Entanglement: None Delayed Cord Clamping: Yes Post Vaginal Delivery Medications Given After Delivery: IV Pitocin Episiotomy Description: None Complication Complications: None Procedures Urinary/Genital [id number]: [id number] Vaginal Delivery [facility]
--- NOTE | 2023-05-20 06:44 | PCM.DC ---
Discharge Instructions Diet Discharge Diet: No restrictions Activity Discharge Activity: Return to Normal Activity, May Not Drive (while taking narcotic pain medications.) and May Shower May resume sexual activity in: 4-6 weeks Dressing / Incision Call your doctor if your incision/area has: Continuous Slow Oozing, Sudden Increased Bleeding, Increased Pain/ Swelling, Increased Redness and Foul Smelling Discharge Follow Up Care Please Follow Up With: Suly Card MD When: Call [phone] to make an appointment with your doctor in 6 weeks. If you had elevated blood pressure or 4th degree laceration, you will need to be seen in 2 weeks. Test Results: Test results from this visit will be discussed in further detail at your follow-up appointment, if applicable. Discharge Plan Admission Admit Date/Time: 05/19/23 23:50 Attending Provider: Suly Card Primary Care Provider: Krystin Amin NP Discharge Orders/Prescriptions Prescriptions: No Action Classic 28 mg iron- 800 mcg tablet PO (DME) breast pump Device See Rx Instructions .ROUTE .MEDSUPPLY Qty: 1 0RF Rx Instructions: As directed docusate sodium [Colace] 100 mg capsule 100 mg PO DAILY ferrous sulfate 325 mg (65 mg iron) tablet 325 mg PO .every other day ondansetron 4 mg tablet,disintegrating 4 mg PO Q8H Qty: 30 3RF Referrals / Follow Up: Krystin Amin NP, PRODUCTION CLERK-C [Primary Care Provider] - Disposition Disposition (needs filled in before D/C Order can be placed): Home, Self Care
--- NOTE | 2023-05-20 07:50 | NURSING ---
report given to Tino Cee RN who is assuming care of pt at this time. [facility] care and unit acuity.
[2023-05-20] MEDS: 0.9% Saline Lock 10 ML Syringe IV (08:06)
--- NOTE | 2023-05-20 13:17 | CASEMGMT ---
Social Work Assessment Labor and Delivery Unit Patient Address:[place] [address] Phone number: [phone] Date of Referral: 05/20/23 Time of Referral:? 829 Referred By: Suly Card Date of Intervention: 05/20/23 ?? Time of Intervention:? 1245 Reason for Referral:? anxiety Sw completed chart review and acknowledges maternal mental health history positive for anxiety. Sw presented to bedside and introduced self to mother of baby (MIKEY- Jack). MOB had visitor present who she identified as her sister. MOB states that it is okay to complete assessment with visitor present. Sw completed psychosocial assessment and provided literature and education for MIKEY. History obtained from: medical records, MOB Household composition: Currently residing in the family home is STEPHON JENSEN, their 1.5 year old daughter, Jewell and now baby. MIKEY denies any concerns with current housing. Patient's parent/guardian status:? ?MOB states that she and STEPHON have been together for 8 or 9 years, they met while working together at [employer]. No concerns reported regarding domestic violence or intimate partner violence. Medical History: ?MIKEY is 27 year old female who is 4, para 1-now 2 following labor and delivery. MIKEY received routine care during with [place]. MIKEY presented to hospital in labor and delivered baby via vaginal delivery on 05/20/23 at 38 weeks gestation. Baby boy, named Radames, was born weighing 8lb 1oz and his apgars were 8 and 9 at one and five minutes of life, respectfully. MOB states that baby will be followed by Dr. Ramires. MIKEY reports that breast feeding is going good so far, and she does have a breast pump for home. Educational Status:? Both parents graduated high school and obtained Bachelors degrees. No issues with reading, learning or comprehension. Financial Status: Both parents are gainfully employed outside of the home. 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 Infant Supplies:?MIKEY states that she has obtained all necessary baby supplies, including: car seat, safe sleep space, clothes, diapers and wipes. ? Childcare/Caregiver(s):? When both parents are working they have a middle school humanities teacher that will watch baby, and maternal grandma is able to help watch their almost 2 year old. Transportation:?? no barriers Programs/Agencies Involved: ???Parents are not connected to any community resources that help them financially. Children Services/Legal Issues:???No history of involvement, no issues or concerns warranting a referral to be made. Behavioral Health Issues: ??Mental Health History:??MOB states that STEPHON does not have any mental health diagnoses. MOB states that she has struggled with anxiety prior to having her first baby. MOB states that she was on antianxiety medication in the past, and has been on it prior to as well. MOB states that she feels as though she did experience some anxiety after her daughter was born. MOB states that she was anxious about returning to work. ? Substance Use History:?MOB denies substance use prior to and during . ? Family History:???MOB states that neither side of the family has any substance use or addiction issues. MOB denies family history of significant mental health diagnoses. MIKEY is also adopted and does not have access to her biological medical history. ?? Drug Screens: ??No drug screens observed during chart review. Family/Social Stressors:? MOB denies any issues, concerns or stressors at this time. Support Systems: Maternal grandparents, maternal aunt and FOB's side of family are supportive. MOB states that when she has questions or needs to talk about something she reaches out to her sister (who is also currently visiting with MOB and baby). Depression/Shaken Baby/Safe Sleeping:? Sw educated MOB on signs and symptoms of baby blues and anxiety and depression to be on the lookout for. Sw encouraged MOB to have conversations with STEPHON about things he can do to be supportive and helpful should she struggle with her mental health during this period. MOB states that she is also receptive to starting medication again if warranted. Sw educated MOB on shaken baby prevention and ABCs of safe sleep. MOB expressed understanding. ASSESSMENT:? MOB and baby admitted following labor and delivery. MOB engaged in conversation and completion of psychosocial assessment. MOB with mental health history of anxiety and was prescribed psychotropic medications previously. MOB states that she has everything she needs for baby and adequate natural supports in place. MOB was talkative and receptive to sw involvement and support. PLAN:? MOB and baby to be discharged when medically ready. ?No other services requested or indicated. Bob Queen, IT TEACHER, RESIDENT CARE PROVIDER
[2023-05-21 05:00] VITALS: BP 102/55; PULSE 74; RESP 16; TEMP 36.6; O2SAT 98
[2023-05-21 05:02] VITALS: BP 102/55; PULSE 78; O2SAT 98
[2023-05-21 08:18] VITALS: BP 93/55; PULSE 65
[2023-05-21 08:39] VITALS: BP 93/55; PULSE 69; RESP 14; TEMP 36.2; O2SAT 99
--- NOTE | 2023-05-21 10:19 | PCM.PN.OB ---
Subjective Subjective Patient doing well without complaints. Tolerating PO. Ambulating and voiding without difficulty. Feeding well. Denies chest pain, shortness of breath, calf pain/swelling, fevers, chills, lightheadedness. Objective Data Objective Data Vital Signs: Vital Signs Temp Pulse Resp BP Pulse Ox O2 Del Method 97.2 F L 69 14 93/55 L 99 Room Air 05/21/23 08:39 05/21/23 08:39 05/21/23 08:39 05/21/23 08:39 05/21/23 08:39 05/21/23 08:39 Oxygen Delivery Method Room Air Weight: 171 lb Body Mass Index (BMI) 26.7 Intake & Output: Intake and Output for Last 24 Hours 05/19/23 05/20/23 05/21/23 23:59 23:59 23:59 Intake Total 2596.67 / 2596.67 Output Total 1800 / 1800 Balance 796.67 / 796.67 Lab / Micro Data 05/19/23 22:25 Physical Exam Const alert and no apparent distress Lymph Lymphatic: no lymphadenopathy noted Chest inspection of chest normal Resp normal respiratory effort, normal air movement and no retractions GI normal to inspection, nondistended, normoactive bowel sounds Uterus Palpation: uterus fundus firm Extremity normal to inspection and full ROM Skin no rashes or lesions noted Psych mental status grossly normal Assessment & Plan (1) Vaginal delivery: COMMENT: ANGLEI COLES IAL boy 38 PLAN: s/p PPD # 1 1. routine post delivery care 2. breast feeding- support given 3. rh positive 4. rubella immune 5. d/c home today
== END 2023-05-21 10:18 | disposition home or self-care (01) | DRG 807 ==
LOC: WPOUT 23:53 → WP 23:53
PROVIDERS: Admitting Provider Obstetrics & Gynecology; PCP Nurse Practitioner Primary Care; Visit Provider Obstetrics & Gynecology
DX: O99.02 Anemia complicating childbirth (principal); Z37.0 Single live birth; O26.23 Pregnancy care for patient with recurrent pregnancy loss, third trimester; Z3A.38 38 weeks gestation of pregnancy
CPT/HCPCS: 59025; 59050; 85025; 86780; 86850; 86900; 86901; 99221; J7120; A4216; G0378

== ENCOUNTER → 2024-07-04 | Outpatient (CLI) | payer OTHER, SELFPAY | END | disposition home or self-care (01) | LOC: LABSPEC 11:03 | PROVIDERS: PCP Nurse Practitioner Primary Care; Referring Provider Nurse Practitioner Women's Health; Visit Provider Nurse Practitioner Women's Health | DX: N89.8 Other specified noninflammatory disorders of vagina (principal) | CPT/HCPCS: 87070; 87205 ==

== ENCOUNTER → 2025-03-10 | Outpatient (CLI) | payer BC, SELFPAY ==
--- NOTE | 2025-03-10 15:49 | RAD_ITS ---
PROCEDURE: HAND MIN 3 VIEWS 03/10/2025 REASON FOR EXAM: INJURY Hand pain. TECHNIQUE: Procedure Code: VENANCIO Modality: DX Procedure: HAND MIN 3 VIEWS Laterality: Left COMPARISON: None FINDINGS: Bones: Thickened sclerotic cortex to the 3rd distal phalanx likely congenital. The distal radius and ulna negative. The carpals metacarpals and phalanges negative. Joints: . No significant joint space narrowing. Soft tissues: Adjacent soft tissues negative. Other: Remainder of the exam negative. RAD/Hand Min 3 Views IMPRESSION: Negative left hand. Reading Location: [id number]
== END | disposition home or self-care (01) ==
LOC: RAD 15:43
PROVIDERS: PCP Nurse Practitioner Primary Care; Visit Provider Emergency Medicine
DX: S69.92XA Unspecified injury of left wrist, hand and finger(s), initial encounter (principal)
CPT/HCPCS: 73130